=== PATIENT | female | born 1940 | race Caucasian/White ===

== ENCOUNTER 2016-06-26 14:25 | Emergency (ER) | payer OTHER ==
[~2016-06-26 14:25] MED LIST: ALBU1AER9 INH; ASPI325T39 PO; FORMCAP INH; LRS20 PO; MULT1TAB32 PO; RIVA1.5C6 PO
[2016-06-26 14:35] VITALS: TEMP 36.8
[2016-06-26] MEDS ORDERED: RIVA3CAP4 PO (15:24)
--- NOTE | 2016-06-26 15:29 | DIAGNOSTIC IMAGING REPORT ---
CT LUMBAR SPINE WITHOUT CT DOSE: 2027.48 mGycm CLINICAL HISTORY: Low back pain status post trauma TECHNIQUE: Helical images were acquired in transverse plane. Reformatted sagittal and coronal images were reviewed. CONTRAST: No contrast was administered COMPARISON STUDY: None. FINDINGS: L1-2 level: There is no evidence of significant disc bulge or focal herniation. There is no evidence of spinal or foraminal stenosis. There is an L2 vertebral body hemangioma L2-3 level: There is no evidence of significant disc bulge or focal herniation. There is no evidence of spinal or foraminal stenosis. L3-4 level: There is no evidence of significant disc bulge or focal herniation. There is no evidence of spinal or foraminal stenosis. L4-5 level: There is a minor circumferential disc bulge. There is no significant spinal or foraminal stenosis. L5-S1 level: There is facet joint arthropathy. There is a grade 1 spondylolisthesis of L5 5 and S1. No herniations are visualized. There is no spinal or foraminal stenosis. The bones are osteopenic. No acute fractures or traumatic subluxations are visualized IMPRESSION: 1. L2 vertebral body hemangioma 2. No acute fractures or traumatic subluxations identified Electronically signed by: Daniel Thomas M.D. 06/26/2016 3:27 PM Dictated Date/Time: 06/26/2016 3:24 PM
--- NOTE | 2016-06-26 15:40 | DIAGNOSTIC IMAGING REPORT ---
HEAD CT NONCONTRAST CT DOSE: 960.78 mGycm HISTORY: fall, hx bleed, hx cva TECHNIQUE: Multiaxial CT images of the head were performed without the use of intravenous contrast. Automated exposure control was utilized for this study. Comparison: Head CT 04/09/2016. Findings: The paranasal sinuses and mastoid air cells are clear. The calvarium and skull base are intact. White matter hypodensity is nonspecific but suggestive of microvascular ischemic change. The ventricles and sulci demonstrate mild age-related involutional changes. The right frontal lobe intracranial hemorrhage has essentially resolved in the interval. There is a residual 3.9 cm hypodense area remaining at this location. This likely represents normal post hemorrhage edema/changes. No acute hemorrhage identified. No acute infarct. There is a new 2.8 cm hypodense area within the high convexity the right frontal lobe best in image 22. This may demonstrate a slightly hyperdense rim. Impression: 1. No acute intracranial abnormality. 2. Interval resolution of right frontal lobe hemorrhage with residual edema/encephalomalacia remaining. 3. There is also a 2.8 cm hypodense focus within the right high convexity. This was not present on the prior study and appears to represent subacute to chronic hemorrhage. However, this may contain a thin hyperdense rim. Therefore, a mass could also have a similar appearance. Brain MRI with contrast is recommended for further evaluation. Gradient echo sequences should also be performed on the MRI to exclude amyloid angiopathy. Electronically signed by: Manjinder Helton M.D. 06/26/2016 3:38 PM Dictated Date/Time: 06/26/2016 3:27 PM
--- NOTE | 2016-06-26 16:43 | EMERGENCY ROOM VISIT NOTE ---
ED Visit Note First contact with patient: 14:41 Pt evaluated with PA. dementia, trip/fall at home. Family wanted pt screened for major problems after recent ICH Apr 2016. Pt at baseline. CT results noted. MRI scheduled in 1 week. Family in agreement with plan for outpt f/u. PA spoke with PCP regarding f/u and plan. Agree w/ management and plan.
--- NOTE | 2016-06-26 17:00 | DIAGNOSTIC IMAGING REPORT ---
RIGHT KNEE 3 VIEWS HISTORY: right knee pain, fall Right COMPARISON: None. FINDINGS: There is no fracture or dislocation. The bones are osteopenic. Chondrocalcinosis. Moderate cartilage space narrowing of the medial compartment with marginal osteophytes. Mild cartilage space narrowing within the lateral compartment. No significant knee effusion. Soft tissues are unremarkable. No radiopaque foreign bodies. IMPRESSION: No fractures. Mild to moderate right knee osteoarthritis. Chondrocalcinosis. Electronically signed by: Manjinder Helton M.D. 06/26/2016 4:58 PM Dictated Date/Time: 06/26/2016 4:57 PM
[2016-06-26] MEDS ORDERED: HYDR-5688 PO (17:22)
--- NOTE | 2016-06-26 17:23 | EMERGENCY ROOM VISIT NOTE ---
History First contact with patient: 14:41 Chief Complaint: FALL Stated Complaint: FALL History of Present Illness The patient is a 76 year old female who presents to the Emergency Room via BLS status post fall. The patient apparently tripped over the family dog and fell to the floor. The patient's family reports that the patient fell backwards onto her back and did hit her head on the floor. There was no loss of consciousness. The patient has been complaining of mid back pain. The report that the patient has a history of dementia and is currently at her baseline mental status. The patient had a bleed in the brain a few months ago. The patient rates her discomfort a 4/10. She denies any nausea, vomiting, abdominal pain or chest pain. Review of Systems A complete 10-point Review of Systems was discussed with the patient, with pertinent positives and negatives listed in the History of Present Illness. All remaining Review of Systems questions can be considered negative unless otherwise specified. Past Medical/Surgical History Medical Problems: (1) Alzheimer's dementia (2) Asthma (3) Dementia (4) Diabetes mellitus (5) History of - transient ischemic attack Family History Seizures Social History Smoking Status: Unknown if Ever Smoked Marital Status: Housing Status: lives with family Occupation Status: disabled Current/Historical Medications Scheduled Citalopram Hydrobromide (Citalopram Hydrobromide), 10 MG PO HS Fluticasone Prop/Salmeterol (Advair Diskus 250/50 60 Dose), 1 PUFF INH BID Levetiractam (Levetiracetam), 1,000 MG PO BID Levothyroxine Sodium (Levothyroxine Sodium), 50 MCG PO DAILY Rivastigmine Tartrate (Exelon), 3 MG PO BID Scheduled PRN Hydrocodone/Acetaminophen 5MG/325MG ([place] 5MG/325MG), 1 TABLET PO Q6H PRN for Pain Ipratropium-Albuterol (Duoneb), 1 TREATMENT INH QID PRN for SOB/Wheezing Allergies Coded Allergies: Sulfa Drugs (Unverified Allergy, Intermediate, headache, 08/31/14) Codeine (Unverified Allergy, Mild, vomiting, 08/31/14) Tramadol (Verified Adverse Reaction, Unknown, CAN NOT HAVE DUE TO RISK OF SEIZURES, 06/26/16) Physical Exam Vital Signs Date Time Temp Pulse Resp B/P Pulse Ox O2 Delivery O2 Flow Rate FiO2 06/26/16 17:27 72 18 128/78 98 06/26/16 16:16 61 18 142/71 96 Room Air 06/26/16 14:35 36.8 65 16 99/59 94 Room Air Physical Exam VITALS: Vitals are noted on the nurse's note and reviewed by myself. Vital signs stable. GENERAL: This is a 76-year-old female, in no acute distress, nondiaphoretic, well-developed well-nourished. SKIN: Capillary reflex less than 2 seconds. HEENT: Normocephalic. PERRLA. EOMI. Nares patent. Mucous membranes moist. Neck is supple without nuchal rigidity. HEART: Regular rate and rhythm without murmurs gallops or rubs. LUNGS: Clear to auscultation bilaterally without wheezes, rales or rhonchi. No retractions or accessory muscle use. ABDOMEN: Positive bowel sounds x 4. Soft, nontender to palpation. MUSCULOSKELETAL: There is tenderness to palpation of the mid lumbar spine. There is minimal tenderness over the right knee. No tenderness otherwise. NEURO: Patient was alert and oriented to person only. Medical Decision & Procedures ER Provider Diagnostic Interpretation: HEAD CT NONCONTRAST Impression: 1. No acute intracranial abnormality. 2. Interval resolution of right frontal lobe hemorrhage with residual edema/encephalomalacia remaining. 3. There is also a 2.8 cm hypodense focus within the right high convexity. This was not present on the prior study and appears to represent subacute to chronic hemorrhage. However, this may contain a thin hyperdense rim. Therefore, a mass could also have a similar appearance. Brain MRI with contrast is recommended for further evaluation. Gradient echo sequences should also be performed on the MRI to exclude amyloid angiopathy. CT LUMBAR SPINE WITHOUT IMPRESSION: 1. L2 vertebral body hemangioma 2. No acute fractures or traumatic subluxations identified RIGHT KNEE 3 VIEWS IMPRESSION: No fractures. Mild to moderate right knee osteoarthritis. Chondrocalcinosis. Medical Decision Differential diagnosis includes intracranial hemorrhage, concussion, fracture, contusion, dislocation, among others. The patient was evaluated as above. Labs were drawn and IV access was obtained. Imaging studies were performed and read by radiology as above. The patient declined any analgesics.. The patient was reassessed multiple times during their stay in the emergency department and remained in stable condition. The patient is a 76-year-old female who presents today complaining of a fall. Imaging studies were performed and read by radiology as above. The patient's head CT did show a chronic hemorrhage versus brain mass. MRI was suggested and follow-up. Dr. Cornell also evaluated the patient and did not feel that this needed to be done emergently. I did speak with the primary care provider to arrange outpatient follow-up. They will follow up with the patient in the office. The patient is already seeing neurology and does have an MRI scheduled of the brain later this month. Lumbar spine CT showed no fractures or subluxations. X-ray of the right knee was unremarkable. The patient was given a prescription for short course of pain medication. She will follow-up with her primary care provider or return for any new symptoms. Based on the patient's presentation, lab results, and imaging studies, I feel the patient is stable for outpatient treatment. Discharge instructions were reviewed with the patient. The patient verbalized understanding of my assessment and treatment plan and was discharged home in good condition. [place] Drug Monitoring Program Search Results: patient reviewed within database Impression Primary Impression: Fall Additional Impression: Contusion of multiple sites Departure Information Dispostion Home / Self-Care Condition GOOD Prescriptions Hydrocodone/Acetaminophen 5MG/325MG ([place] 5MG/325MG) Tab 1 TABLET PO Q6H Y for Pain, #10 TAB For Initial Treatment Prov: Saadia García ., INDY 06/26/16 Referrals Gayle Moreno M.D. (PCP) Patient Instructions My [facility] Additional Instructions You have been prescribed [place] to be used for pain control. Take 1-2 tablets every 4-6 hours as needed for pain. This is a narcotic medication. You cannot drive or consume alcohol while on this medicine. This medicine should only be used for pain that cannot be controlled with [id number] pain medicines. Follow-up with Dr. Moreno and for MRI as scheduled. Return to the emergency department with any worsening confusion, dizziness, or any other new/concerning symptoms. Problem Qualifiers
[2016-06-26 17:27] VITALS: BP 128/78; PULSE 72; O2SAT 98
[2017-01-20] MEDS ORDERED: LEVO50TA6 PO (13:56)
[2017-01-20] MEDS ORDERED: LEVE500T PO (13:56)
[2017-01-20] MEDS ORDERED: CITA10TA4 PO (14:00)
[2017-01-20] MEDS ORDERED: ADVIN25/60 INH (15:24)
[2017-01-20] MEDS ORDERED: IPRASOL4 INH (15:24)
[2017-01-23] MEDS ORDERED: AMOX875T PO (10:04)
== END 2016-06-26 17:28 | disposition home or self-care (01) ==
LOC: EDBD 14:25 → C.EDB 14:27
DX: T14.8 Other injury of unspecified body region (principal); W01.0XXA Fall on same level from slipping, tripping and stumbling without subsequent striking against object, initial encounter; D18.09 Hemangioma of other sites; R94.02 Abnormal brain scan; M17.11 Unilateral primary osteoarthritis, right knee; M11.261 Other chondrocalcinosis, right knee; G30.9 Alzheimer's disease, unspecified; F02.80 Dementia in other diseases classified elsewhere, unspecified severity, without behavioral disturbance, psychotic disturbance, mood disturbance, and anxiety; J45.909 Unspecified asthma, uncomplicated; E11.9 Type 2 diabetes mellitus without complications; Z86.73 Personal history of transient ischemic attack (TIA), and cerebral infarction without residual deficits; Z82.0 Family history of epilepsy and other diseases of the nervous system

== ENCOUNTER 2017-01-20 21:54 | Inpatient (IN) | payer OTHER ==
[~2017-01-20] VITALS: Ht 165.1 cm; Wt 79.0 kg
[~2017-01-20 21:54] MED LIST changes: +ADVIN25/60 INH; -ALBU1AER9 INH; -ASPI325T39 PO; +CITA10TA4 PO; -FORMCAP INH; +IPRASOL4 INH; +LEVE500T PO; +LEVO50TA6 PO; -LRS20 PO; -MULT1TAB32 PO; -RIVA1.5C6 PO; +RIVA3CAP4 PO
[2017-01-20] MEDS ORDERED: SODIUM CHLORIDE 0.9% 500ML 500 ML IV STA (22:13)
[2017-01-20] MEDS ORDERED: SODIUM CHLORIDE 0.9% 1000ML 1,000 ML IV STA (22:13)
[2017-01-20] MEDS ORDERED: SODIUM CHLORIDE 0.9% 1000ML 1,000 ML IV SCH (22:13)
[2017-01-20] MEDS ORDERED: VNTHFA/IN INH (22:37)
--- NOTE | 2017-01-20 22:45 | EMERGENCY ROOM VISIT NOTE ---
ED Visit Note First contact with patient: 22:03 I did evaluate and examine this patient myself. I did guide management for the patient. I agree with the APC's assessment as discussed. Please see the APC's dictation for further details. I did independently review the CT scan and blood work.
[2017-01-20] MEDS ORDERED: RIVA3CAP4 PO (22:58)
[2017-01-20 23:15] LABS: BASO % 0.1 %; BASO ABS # 0.02 K/uL (0-0.2); COMPLETE YES; EOS % 0.1 %; HEMATOCRIT 41.7 % (37-47); IG% 0.4 %; LYMPH ABS # 1.05 K/uL (1.2-3.4); MEAN CORPUSCULAR HEMOGLOBIN 30.3 pg (25-34); MEAN CORPUSCULAR HGB CONC 33.3 g/dl (32-36); MEAN PLATELET VOLUME 9.6 fL (7.4-10.4); MONO % 5.3 %; NEUT % 87.1 %; PLATELET COUNT 329 K/uL (130-400); RED BLOOD COUNT 4.58 M/uL (4.2-5.4); WHITE BLOOD COUNT 15.06 K/uL (4.8-10.8)
[2017-01-20 23:25] LABS: PARTIAL THROMBOPLASTIN RATIO 1.2; PROTHROMBIN TIME (PATIENT) 10.7 SECONDS (9.0-12.0)
[2017-01-20 23:35] LABS: BLOOD UREA NITROGEN 13 mg/dl (7-18); CALCIUM 8.8 mg/dl (8.5-10.1); CARBON DIOXIDE 22 mmol/L (21-32); CHLORIDE 105 mmol/L (98-107); GLUCOSE 134 mg/dl (70-99); MAGNESIUM 1.8 mg/dl (1.8-2.4); POTASSIUM 3.8 mmol/L (3.5-5.1); SODIUM 137 mmol/L (136-145)
[2017-01-20 23:37] LABS: URINE APPEARANCE CLEAR (CLEAR); URINE BILIRUBIN NEG (NEG); URINE COLOR YELLOW; URINE NITRITE NEG (NEG); URINE PH 7.5 (4.5-7.5); URINE SPECIFIC GRAVITY 1.014 (1.000-1.030); UROBILINOGEN NEG (NEG); ZZURINE CULT IF INDIC CATH NO
[2017-01-20 23:38] LABS: BUN/CREATININE RATIO 17.5 (10-20); CREATININE 0.74 mg/dl (0.60-1.20)
[2017-01-20 23:42] LABS: MANUAL MICROSCOPIC REQUIRED? NO; REVIEW REQ? NO
[2017-01-20 23:45] LABS: ALKALINE PHOSPHATASE 181 U/L (45-117); ALT/SGPT 21 U/L (12-78); AST/SGOT 14 U/L (15-37); CKMB/CK RATIO 3.4 (0-3.0)
[2017-01-20] MEDS ORDERED: OPTIRAY 320 IV PRN (23:45)
[2017-01-21] VITALS (8 sets, daily range): BP systolic 100–154; BP diastolic 57–82; PULSE 69–92; TEMP 36.5–37.1; O2SAT 92–98; Ht 165.1 cm; Wt 79.0 kg
[2017-01-21] MEDS ORDERED: LABETALOL HCL IV 5 MG/ML 20ML IV STA (00:49)
[2017-01-21] MEDS ORDERED: LEVAQUIN 750MG / 150ML D5W IV STA (01:15)
--- NOTE | 2017-01-21 01:22 | EMERGENCY ROOM VISIT NOTE ---
History First contact with patient: 22:03 Chief Complaint: ALTERED MENTAL STATUS Stated Complaint: LETHARGIC, CONFUSION, UNABLE TO AMBULATE Nursing Triage Summary: Starting at noon today Pt had difficulty ambulating. Balance is off. Pt lethargic today. Pt has hx of CVA and dementia. History of Present Illness The patient is a 76 year old female who presents to the Emergency Room with complaints of increasing confusion and difficulty ambulating since this morning. Patient has dementia and unable to obtain history. History is obtained from the grandson who lives in care for her. The grandson states that she normally does speak and is able to ablate with her walker. He states this morning she did not want take a shower or get up. Since then she's not been speaking or doing much of anything. He denies vomiting, diarrhea, patient complaining of chest pain, dyspnea or abdominal pain. He states that she's had a stroke before but is unsure if there is any deficits. He is unsure exactly when she was last known well but was this morning at some point which is greater than 12 hours from now. Review of Systems See HPI for pertinent positives & negatives. A total of 10 systems reviewed and were otherwise negative. Past Medical/Surgical History Medical Problems: (1) Alzheimer's dementia (2) Asthma (3) Dementia (4) Diabetes mellitus (5) History of - transient ischemic attack Family History Seizures Social History Smoking Status: Former Smoker Alcohol Use: none Drug Use: none Marital Status: Housing Status: lives with family Occupation Status: disabled Current/Historical Medications Scheduled Citalopram Hydrobromide (Citalopram Hydrobromide), 10 MG PO HS Fluticasone Prop/Salmeterol (Advair Diskus 250/50 60 Dose), 1 PUFF INH BID Levetiractam (Levetiracetam), 1,000 MG PO BID Levothyroxine Sodium (Levothyroxine Sodium), 50 MCG PO DAILY Rivastigmine Tartrate (Exelon), 3 MG PO BID Scheduled PRN Ipratropium-Albuterol (Duoneb), 1 TREATMENT INH QID PRN for SOB/Wheezing Allergies Coded Allergies: Sulfa Drugs (Unverified Allergy, Intermediate, headache, 08/31/14) Codeine (Unverified Allergy, Mild, vomiting, 08/31/14) Tramadol (Verified Adverse Reaction, Unknown, CAN NOT HAVE DUE TO RISK OF SEIZURES, 06/26/16) Physical Exam Vital Signs Date Time Temp Pulse Resp B/P (MAP) Pulse Ox O2 Delivery O2 Flow Rate FiO2 01/21/17 00:23 37.3 113 33 216/122 93 Room Air 01/20/17 23:23 36.4 106 32 174/112 96 Room Air 01/20/17 23:22 36.4 01/20/17 22:47 Room Air 01/20/17 22:05 105 01/20/17 22:01 37.5 105 30 197/125 94 Room Air Physical Exam VITALS: Vitals are noted on the nurse's note and reviewed by myself. Vital signs hypertensive GENERAL: Pleasant elderly female able to follow some commands but does not know where she is at, in no acute distress SKIN: The skin was without rashes, erythema, edema, or bruising. There is no tenting of the skin. Capillary reflex less than 2 seconds. HEAD: Normocephalic atraumatic. EARS: External auditory canals clear, tympanic membranes pearly castrejon without erythema or effusion bilaterally. EYES: Pupils equal round and reactive to light and accommodation. Conjunctivae without injection, sclerae without icterus. Extraocular movements intact. NOSE: Patent, turbinates without inflammation or discharge. No sinus tenderness. MOUTH: Mucous membranes mildly dry. Pharynx without erythema or exudate. Uvula midline. Airway patent. Tongue does not deviate. NECK: Supple without nuchal rigidity. No lymphadenopathy. No thyromegaly. Cervical spine is nontender. No JVD. HEART: Regular rate and rhythm LUNGS: Clear to auscultation bilaterally without wheezes, rales or rhonchi. No dullness to percussion. No retractions or accessory muscle use. ABDOMEN: Positive bowel sounds x 4. Normal tympanic percussion. Soft, tender to palpation lower abdomen, no CVA tenderness, without masses or organomegaly. [place] sign negative. No guarding or rebound tenderness. MUSCULOSKELETAL: No muscle atrophy, erythema, or edema noted. Left pronator drift with increased weakness in the left arm versus the right. Equal Bilateral lower leg weakness. NEURO: Patient was alert but not oriented to person place and time. Medical Decision & Procedures Laboratory Results 01/20/17 22:43 Red Blood Count 4.58, Mean Corpuscular Volume 91.0, Mean Corpuscular Hemoglobin 30.3, Mean Corpuscular Hemoglobin Concent 33.3, Mean Platelet Volume 9.6, Neutrophils (%) (Auto) 87.1, Lymphocytes (%) (Auto) 7.0, Monocytes (%) (Auto) 5.3, Eosinophils (%) (Auto) 0.1, Basophils (%) (Auto) 0.1, Neutrophils # (Auto) 13.12, Lymphocytes # (Auto) 1.05, Monocytes # (Auto) 0.80, Eosinophils # (Auto) 0.01, Basophils # (Auto) 0.02 01/20/17 22:43 Test 01/20/17 22:43 01/20/17 23:01 01/20/17 23:20 01/21/17 00:49 White Blood Count 15.06 K/uL (4.8-10.8) Red Blood Count 4.58 M/uL (4.2-5.4) Hemoglobin 13.9 g/dL (12.0-16.0) Hematocrit 41.7 % (37-47) Mean Corpuscular Volume 91.0 fL (80-100) Mean Corpuscular Hemoglobin 30.3 pg (25-34) Mean Corpuscular Hemoglobin Concent 33.3 g/dl (32-36) Platelet Count 329 K/uL (130-400) Mean Platelet Volume 9.6 fL (7.4-10.4) Neutrophils (%) (Auto) 87.1 % Lymphocytes (%) (Auto) 7.0 % Monocytes (%) (Auto) 5.3 % Eosinophils (%) (Auto) 0.1 % Basophils (%) (Auto) 0.1 % Neutrophils # (Auto) 13.12 K/uL (1.4-6.5) Lymphocytes # (Auto) 1.05 K/uL (1.2-3.4) Monocytes # (Auto) 0.80 K/uL (0.11-0.59) Eosinophils # (Auto) 0.01 K/uL (0-0.5) Basophils # (Auto) 0.02 K/uL (0-0.2) RDW Standard Deviation 44.5 fL (36.4-46.3) RDW Coefficient of Variation 13.4 % (11.5-14.5) Immature Granulocyte % (Auto) 0.4 % Immature Granulocyte # (Auto) 0.06 K/uL (0.00-0.02) Prothrombin Time 10.7 SECONDS (9.0-12.0) Prothromb Time International Ratio 1.0 (0.9-1.1) Activated Partial Thromboplast Time 30.3 SECONDS (21.0-31.0) Partial Thromboplastin Ratio 1.2 Anion Gap 10.0 mmol/L (3-11) Est Creatinine Clear Calc Drug Dose 70.1 ml/min Estimated GFR () 92.5 Estimated GFR (Non- 79.8 BUN/Creatinine Ratio 17.5 (10-20) Calcium Level 8.8 mg/dl (8.5-10.1) Magnesium Level 1.8 mg/dl (1.8-2.4) Total Bilirubin 0.5 mg/dl (0.2-1) Direct Bilirubin < 0.1 mg/dl (0-0.2) Aspartate Amino Transf (AST/SGOT) 14 U/L (15-37) Alanine Aminotransferase (ALT/SGPT) 21 U/L (12-78) Alkaline Phosphatase 181 U/L (45-117) Total Creatine Kinase 100 U/L (26-192) Creatine Kinase MB 3.4 ng/ml (0.5-3.6) Creatine Kinase MB Ratio 3.4 (0-3.0) Troponin I < 0.015 ng/ml (0-0.045) Total Protein 7.2 gm/dl (6.4-8.2) Albumin 3.5 gm/dl (3.4-5.0) Bedside Glucose 142 mg/dl (70-90) Bedside Lactic Acid Venous 0.92 mmol/L (0.90-1.70) Urine Color YELLOW Urine Appearance CLEAR (CLEAR) Urine pH 7.5 (4.5-7.5) Urine Specific [place] 1.014 (1.000-1.030) Urine Protein NEG (NEG) Urine Glucose (UA) NEG (NEG) Urine Ketones NEG (NEG) Urine Occult Blood NEG (NEG) Urine Nitrite NEG (NEG) Urine Bilirubin NEG (NEG) Urine Urobilinogen NEG (NEG) Urine Leukocyte Esterase NEG (NEG) Medications Administered Medications (Trade) Dose Ordered Sig/Dora Route Start Time Stop Time Status Last Admin Dose Admin Sodium Chloride 1,000 ml @ 50 mls/hr Q20H IV 01/20/17 22:13 02/19/17 22:12 01/20/17 23:26 50 MLS/HR Sodium Chloride 500 ml @ 999 mls/hr Q31M STAT IV 01/20/17 22:13 01/20/17 22:43 DC 01/20/17 22:58 999 MLS/HR Sodium Chloride 1,000 ml @ 125 mls/hr Q8H STAT IV 01/20/17 22:13 01/21/17 06:12 01/20/17 23:27 125 MLS/HR Labetalol HCl (Normodyne IV) 10 mg NOW STAT IV 01/21/17 00:49 01/21/17 00:51 DC 01/21/17 01:00 10 MG ED Course Prior records/ancillary studies reviewed and summarized above. Nursing notes reviewed. Additional history obtained from family The patient's history was concerning for altered mental status. Differential diagnosis: Etiologies such as metabolic, infection, hypoglycemia, electrolyte abnormalities , cardiac sources, intracerebral event, toxicologic, neurologic, as well as others were entertained. Physical examination: As above. ER treatment provided: IV Lock Normal saline hydration at 500 mL bolus and 125 an hour. On reassessment the patients mental status improved. Diagnostics interpretation by me: ECG: Normal sinus, normal intervals, left axis deviation, Q waves in the anteroseptal leads, poor baseline, rate of 104. Impression sinus tachycardia with a left axis deviation with Q waves in the anteroseptal leads interpreted The labs revealed leukocytosis, negative lactic acid. Negative urine. Negative troponin Imaging studies: CTA HEAD: No central occlusion related to the [place] of [place]. CTA NECK: No occlusion or critical stenosis in the carotid or vertebral arteries. 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 Too small to characterize low attenuation focus in right lobe of the thyroid gland. CT ABDOMEN & PELVIS: No evidence of appendicitis or colitis. Morgan catheter. Patchy consolidation/atelectasis in right mid - lower lung field. Radiologist: Teresa Buckner M.D. Chest x-ray with possible RLL consolidation, no pneumothorax or free air per my interpretation Given the above diagnostic work-up and treatment, this episode appears to be consistent with pneumonia with altered mental status. CTA was negative. Patient did have a leukocytosis. Negative lactic acid. She was confused. She is started on antibiotics hydrated as above. She will be evaluated by medicine for possible admission. Blood cultures are pending. Further treatment will be required. Consultation: A consultation was placed with Dr. Donta perla. The case was discussed and diagnostics were reviewed. The patient was evaluated in the ER for further treatment. Case reviewed with my attending. Medical Decision As above Impression Primary Impression: Pneumonia Additional Impression: Altered mental status Departure Information Dispostion Being Evaluated By Hospitalist Condition FAIR Referrals Gayle Moreno M.D. (PCP) Patient Instructions My [facility] Problem Qualifiers Primary Impression: Pneumonia Pneumonia type: due to unspecified organism Laterality: right Lung location : lower lobe of lung Qualified Codes: J18.1 - Lobar pneumonia, unspecified organism Additional Impression: Altered mental status Altered mental status type: disorientation Qualified Codes: R41.0 - Disorientation, unspecified
[2017-01-21] MEDS ORDERED: OXYCODONE/ACETAMINOPHEN 5-325 TAB PO PRN (02:45)
[2017-01-21] MEDS ORDERED: ONDANSETRON INJ 2 MG/ML 2 ML VIAL IV PRN (02:45)
[2017-01-21] MEDS ORDERED: HYDROmorphone INJ 0.5 MG/0.5 ML SYR IV PRN (02:45)
[2017-01-21] MEDS ORDERED: NITROGLYCERIN 0.4 MG SL PER TAB CHARGE SL PRN (02:45)
[2017-01-21] MEDS ORDERED: PIPERACILLIN/TAZOBACTAM 4.5 GM/100ML D5W IV STA (02:53)
[2017-01-21] MEDS ORDERED: NSS + 20MEQ KCL 1000ML 1,000 ML IV ONE (03:00)
[2017-01-21] MEDS ORDERED: LEVALBUTEROL/IPRATROPIUM NEB INH PRN (03:45)
[2017-01-21 03:57] LABS: BUN/CREATININE RATIO 11.3 (10-20); CALCIUM 8.5 mg/dl (8.5-10.1); CREATININE 0.85 mg/dl (0.60-1.20); POTASSIUM 3.9 mmol/L (3.5-5.1)
[2017-01-21] MEDS ORDERED: METRONIDAZOLE / NSS 500 MG in PREMIXED NSS 100 ML IV SCH (04:00)
[2017-01-21] MEDS ORDERED: PNEUMOCOCCAL POLYSACCHARIDES 25 MCG/0.5 ML VIAL/SYR IM. ONE (05:00)
[2017-01-21] MEDS ORDERED: PNEUMOCOCCAL ADMINISTRATION CHARGE ONE (05:00)
[2017-01-21] MEDS ORDERED: IPRATROPIUM BROMIDE NEB SOLN 0.02% 2.5 ML VIAL INH PRN (05:00)
[2017-01-21] MEDS ORDERED: LEVALBUTEROL 1.25MG/0.5ML NEB INH PRN (05:00)
[2017-01-21] MEDS: LEVOTHYROXINE 50 MCG TAB PO SCH ×2 (05:18→07:36)
--- NOTE | 2017-01-21 06:32 | DIAGNOSTIC IMAGING REPORT ---
CT HEAD WITHOUT CONTRAST (CT) CLINICAL HISTORY: Acute change in mental status. Left-sided weakness. History of stroke. COMPARISON STUDY: 06/26/2016 TECHNIQUE: Axial CT of the brain is performed from the vertex to the skull base. IV contrast was not administered for this examination. A dose lowering technique was utilized adhering to the principles of ALARA. CT DOSE: 614.27 mGy.cm FINDINGS: No intra or extra-axial mass lesions are visualized. There is no CT evidence of acute cortical infarction. There is no evidence of midline shift. There is no acute hemorrhage. No calvarial fractures are visualized. There are moderate white matter hypodensities likely on a small vessel basis. There is an old right frontal infarct. There is no evidence of pathologic ventricular dilatation. There is no evidence of acute sinusitis. There is increased density within a right middle cerebral artery segment. While this may be artifactual, an acute thrombus cannot be excluded. IMPRESSION: 1. Old right frontal infarct 2. Moderate white matter hypodensities likely on a small vessel basis 3. No acute hemorrhage 4. Increased density within the right middle cervical artery segment. While this may be artifactual, an acute thrombus cannot be excluded. Electronically signed by: Daniel Thomas M.D. 01/21/2017 6:31 AM Dictated Date/Time: 01/21/2017 6:28 AM
--- NOTE | 2017-01-21 06:43 | DIAGNOSTIC IMAGING REPORT ---
CT HEAD ANGIO WITH CONTRAST CLINICAL HISTORY: Confusion, lethargy, left pronator drift. Possible hyperdense right MCA sign TECHNIQUE: CT angiography of the head was performed in a dynamic helical fashion during intravenous administration of 116 cc of Optiray 320. A dose lowering technique was utilized adhering to the principles of ALARA. MIP imaging was performed CT DOSE: COMPARISON STUDY: Noncontrast head CT dated 01/20/2017 FINDINGS: There are no lesion suspicious for aneurysm. There are no major intracranial branch occlusions. The dural venous sinuses appear patent. There is a prominent transcortical draining vein within the left frontal lobe suggesting an underlying developmental venous anomaly. IMPRESSION: 1. No evidence of aneurysm 2. No evidence of major intracranial branch occlusion 3. Left frontal developmental venous anomaly 4. No evidence of right middle cerebral artery thrombus Electronically signed by: Daniel Thomas M.D. 01/21/2017 6:41 AM Dictated Date/Time: 01/21/2017 6:37 AM
--- NOTE | 2017-01-21 07:07 | DIAGNOSTIC IMAGING REPORT ---
SINGLE VIEW CHEST CLINICAL HISTORY: Change in mental status. FINDINGS: An AP, portable, upright chest radiograph is compared to study dated 04/09/2016. The examination is degraded by portable technique and patient rotation. The heart is top normal for projection. There is atherosclerotic calcification of the thoracic aorta. Chronic interstitial thickening and nodularity is similar to previous. There is no evidence of superimposed airspace consolidation or pleural effusion. Atelectasis is noted at the lung bases. No pneumothorax is seen. The skeletal structures are osteopenic. The bony thorax is grossly intact. IMPRESSION: No acute cardiopulmonary abnormality. Electronically signed by: Roberto Clark M.D. 01/21/2017 7:05 AM Dictated Date/Time: 01/21/2017 7:04 AM
--- NOTE | 2017-01-21 07:13 | DIAGNOSTIC IMAGING REPORT ---
NECK ANGIO WITH CONTRAST CLINICAL HISTORY: 76 years-old Female presenting with confusion, lethargic, left pronator drift, unable to ambulate, diffuse abdominal pain. TECHNIQUE: Multidetector CT angiography of the neck was performed after the administration of intravenous contrast. 3-D volumetric and/or maximum intensity projection (MIP) images were subsequently reconstructed for review. IV contrast: 116 mL of Optiray 320. A dose lowering technique was used consistent with the principles of ALARA (as low as reasonably achievable). COMPARISON: Noncontrast CT of the cervical spine from 08/31/2014. CT DOSE (mGy.cm): The estimated cumulative dose is 1303.32 mGy.cm. FINDINGS: [employer] topogram: Unremarkable. Atherosclerosis of the aortic arch. Three-vessel arch configuration. Atherosclerosis of the origins of the major branch vessels. Mild atherosclerosis of the common carotid arteries with noncalcified atherosclerotic plaque resulting in a minimum diameter of the left common carotid artery of 4 to 5 mm. Minimal atherosclerosis of the proximal internal carotid arteries, which is not significantly narrow the lumen (less than 10%). The bilateral internal carotid arteries remain patent throughout their courses without evidence of significant narrowing, aneurysmal dilatation, or dissection. Atherosclerosis of the cavernous portions of the intracranial ICAs. Codominant vertebral arteries with patent origins and courses. Limited intracranial evaluation demonstrates grossly patent intracranial vasculature and hypodensity in the right middle cerebral artery territory distribution, consistent with old infarct as noted on prior CT head. No lymphadenopathy. Subcentimeter hypodense nodule noted in the right thyroid lobe. Lung apices clear. Multilevel degenerative changes of the cervical spine. IMPRESSION: 1. Atherosclerosis without evidence of significant stenosis, dissection, or occlusion of the cervical vessels. 2. Partially visualized right MCA territory chronic infarct. Electronically signed by: Johnny Power M.D. 01/21/2017 7:12 AM Dictated Date/Time: 01/21/2017 7:04 AM
[2017-01-21 07:17] LABS: MEAN CELL VOLUME 90.5 fL (80-100); MEAN CORPUSCULAR HEMOGLOBIN 31.4 pg (25-34); MEAN CORPUSCULAR HGB CONC 34.7 g/dl (32-36); MEAN PLATELET VOLUME 9.4 fL (7.4-10.4); PLATELET COUNT 252 K/uL (130-400); WHITE BLOOD COUNT 17.21 K/uL (4.8-10.8)
--- NOTE | 2017-01-21 07:19 | DIAGNOSTIC IMAGING REPORT ---
CT SCAN OF THE ABDOMEN AND PELVIS WITH IV CONTRAST CLINICAL HISTORY: Generalized abdominal pain. Change in mental status. COMPARISON STUDY: No priors. TECHNIQUE: Following the IV administration of 116 cc of Optiray 320, CT scan of the abdomen and pelvis is performed from the lung bases to the proximal femora. Images are reviewed in the axial, sagittal, and coronal planes. IV contrast was administered without complication. Automated dose control exposure was utilized. A dose lowering technique was utilized adhering to the principles of ALARA. The examination is degraded by streak artifact from the patient's arms which could not be elevated above the abdomen as well as by motion artifact. The examination was obtained an excretory phase of enhancement. FINDINGS: Lung bases: The heart is normal in size and without pericardial effusion. The coronary arteries and mitral annulus are calcified. There are subpleural opacities in the right middle lobe. The lung bases are otherwise clear. No pleural effusion is seen. Liver: The contrast-enhanced liver is normal in size, contour, and attenuation. There is no intrahepatic biliary ductal dilatation. The hepatic veins and portal veins are patent. Gallbladder: Adnexa pneumatosis is seen within the gallbladder wall fundus. The gallbladder is otherwise normal in appearance. Spleen: Normal in size and attenuation. Pancreas: Moderately atrophic and grossly unremarkable. Adrenal glands: Unremarkable. Kidneys: The contrast enhanced kidneys demonstrate cortical atrophy and are without hydronephrosis. The kidneys enhance and excrete symmetrically. Abdominal vasculature: The abdominal aorta is normal in course and caliber noting advanced atherosclerotic calcification. Bowel: The small bowel and colon are normal in course and caliber. The appendix is well-visualized and normal. Peritoneum: There is no intraperitoneal free air or abdominal ascites. There is a small fat-containing umbilical hernia. Lymphadenopathy: None. Pelvic viscera: The bladder is decompressed around a Morgan catheter. Small foci of intraluminal gas are likely related to instrumentation. The uterus is surgically absent. No adnexal lesion is seen. Findings suggest pelvic floor prolapse. Skeletal structures: The skeletal structures are osteopenic. There is moderate lumbosacral spondylosis. A large hemangioma is noted in the body of L2. No lytic or blastic lesions are seen. IMPRESSION: 1. There are no acute infectious or inflammatory findings in the abdomen or pelvis. 2. There are subpleural opacities identified in the right middle lobe. This is nonspecific and could represent atelectasis versus an infectious/inflammatory pneumonitis. Given the subpleural location pulmonary infarct is also a consideration. If there is clinical concern for pulmonary infarct then a CT angiogram of the chest should be considered. 3. The bladder is decompressed around a Morgan catheter. Foci of intraluminal gas are likely related to instrumentation. Correlation with clinical findings and urinalysis will be required. 4. Additional findings as above. Electronically signed by: Roberto Clark M.D. 01/21/2017 7:17 AM Dictated Date/Time: 01/21/2017 7:02 AM
[2017-01-21] MEDS: FLUTICASONE/SALMETEROL 250/50 (ADVAIR) 14 PUFF/1 INHALER INH SCH ×2 (07:31→20:35)
[2017-01-21] MEDS: RIVASTIGMINE TARTRATE (EXELON) 1.5 MG CAP PO SCH ×2 (07:31→20:38)
[2017-01-21] MEDS: LEVETIRACETAM 500 MG TAB PO SCH ×2 (07:32→20:38)
[2017-01-21] MEDS: PIPERACILL/TAZOBAC IV 3.375 GM in DEXTROSE 5% 100ML IV SCH ×2 (07:37→16:17)
[2017-01-21 07:47] LABS: BASO % 0.1 %; BASO ABS # 0.01 K/uL (0-0.2); COMPLETE YES; EOS % 0.1 %; IG% 0.4 %; LYMPH % 9.4 %; LYMPH ABS # 1.62 K/uL (1.2-3.4); MONO % 4.9 %; NEUT % 85.1 %
[2017-01-21] MEDS ORDERED: PIPERACILL/TAZOBAC CONSULT ACTIVE PRN (09:00)
--- NOTE | 2017-01-21 09:04 | HISTORY & PHYSICAL EXAMINATION ---
DATE OF ADMISSION: 01/21/2017 PRIMARY CARE DOCTOR: Dr. Edwards. CHIEF COMPLAINT: Altered mental status as per records. HISTORY OF PRESENT ILLNESS: History obtained from the patient's grandson and records. Unable to obtain history secondary to the patient's dementia. Medical history significant for dementia, hypertension, hx ischemic CVA as per records, history of subarachnoid hemorrhage, epilepsy, COPD, ongoing tobacco abuse, history of esophageal dysfunction as per records. Recent confinement at [facility] in 04/2016 for traumatic subarachnoid hemorrhage. Angiogram was negative for aneurysm or dissection. Patient was intubated in the ICU, subsequently extubated. Subsequently discharged to rehabilitation then home. Yesterday, the patient noted to be more confused than usual, increasingly weak. Loose stools noted as well as per records. No chest pain, no shortness of breath, no unusual cough symptoms as per grandson. As per grandson, the patient noted to be coughing if she is not careful with meals and coffee. Patient brought to the Emergency Room, given Levaquin for possible pneumonia. MEDICAL HISTORY: As above. SURGERIES: Thyroidectomy, hysterectomy, urethral reconstruction. HOME MEDICATIONS: Include citalopram, Advair Diskus, DuoNeb, levothyroxine, Exelon. ALLERGIES: TO CODEINE, TRAMADOL, SULFA. FAMILY HISTORY: Liver disease; breast, lung, kidney cancer; skin cancer; stroke. PERSONAL AND SOCIAL HISTORY: Past tobacco abuse. No chronic intake of alcoholic beverages. Lives with grandson. REVIEW OF SYSTEMS: Could not be obtained. PHYSICAL EXAMINATION: VITAL SIGNS: Blood pressure noted to be initially 216/132, later 160/80; pulse rate 113, later 92; RR 20; 36.6; sats 95 on room air. GENERAL: Noted to be demented, follows some commands, hard of hearing. SKIN: Normal color. HEENT: [place] palpebral conjunctivae, dry mucosa. NECK: No JVD. Supple CHEST: Decreased breath sounds. HEART: Regular rate and rhythm. ABDOMEN: Soft. EXTREMITIES: No edema, no tenderness. NEUROLOGIC: Demented, hard of hearing. LABORATORY DATA: Hemoglobin was noted to be 13.9, hematocrit 41.7, white blood cell count 15, platelets 339. Sodium 136, potassium 3.8, chloride 105, CO2 of 22, BUN 30, creatinine 0.7, glucose 134. IMAGING DATA: CT head initial read showed old right frontal infarct, no acute hemorrhage. CT head angio showed no evidence of aneurysm, left frontal developmental venous anomaly. CT abdomen and pelvis, no evidence of hepatitis, Morgan catheter, patchy consolidation, atelectasis right mid lung. ASSESSMENT: 1. Encephalopathy secondary to sepsis Possible sources : aspiration pneumonia, history of esophageal dysfunction Diarrhea rule out C. difficile 2. Dementia. 3. Seizure disorder, stable. 4. History of intracranial hemorrhage. 5. History of ischemic cerebrovascular accident. 6. COPD, past tobacco abuse. Although with episodes of tachypnea, patient currently not in respiratory distress. 7. Hyperglycemia, rule out diabetes. PLAN: PCU. Cultures. Aspiration precautions. Zosyn. Swallow eval consult RE patient caregiver indication regarding aspiration precautions Stool C. difficile, Flagyl for now for presumptive C. difficile in light of sepsis criteria, DC Flagyl if C. difficile negative PT/OT eval. Check hemoglobin A1c. DVT prophylaxis, SCDs, RE recent SAH Full code as per grandson/caregiver, Jenaro. Awaiting call back from patient's daughter, Cely Valero ([phone]) to address code status. [facility]
[2017-01-21 09:31] LABS: ESTIMATED AVERAGE GLUCOSE 117 mg/dl; HA1C FLAG Normal (Normal)
--- NOTE | 2017-01-21 11:38 | Progress Note ---
Subjective Date of Service: Jan 21, 2017. Subjective Pt evaluation today including: conversation w/ patient, physical exam, lab review, review of studies, review of inpatient medication list Saw/examined the patient in room 217 She is doing better today; grandson is at bedside, states he lives with her at home and cares for her. He tells me that she seems to be closer to baseline today; she is now ambulating well; she is smiling and more aware. Patient is seated in a chair in no acute distress Problem List Medical Problems: (1) Altered mental status Status: Acute (2) Altered mental status Status: Acute (3) Intracranial hemorrhage Status: Acute (4) Pneumonia Status: Acute (5) Subarachnoid hemorrhage Status: Acute (6) Subdural hemorrhage Status: Acute Review of Systems cannot obtain due to patient's mental status Medications Current Inpatient Medications Medications (Trade) Dose Ordered Sig/Dora Route Start Time Stop Time Status Last Admin Dose Admin Ioversol (Optiray 320) 100 ml UD PRN IV 01/20/17 23:45 01/24/17 23:44 Potassium Chloride/Sodium Chloride 1,000 ml @ 75 mls/hr [id number] ONCE IV 01/21/17 03:00 01/21/17 16:19 01/21/17 04:01 75 MLS/HR Acetaminophen (Tylenol Tab) 650 mg Q4H PRN PO 01/21/17 02:45 02/20/17 02:44 Nitroglycerin (Nitrostat Tab) 0.4 mg UD PRN SL 01/21/17 02:45 02/20/17 02:44 Hydromorphone HCl (Dilaudid Inj) 0.5 mg Q3H PRN IV 01/21/17 02:45 02/04/17 02:44 Oxycodone/ Acetaminophen (Percocet 5-325mg Tab) 1 tab Q6H PRN PO 01/21/17 02:45 02/04/17 02:44 Ondansetron HCl (Zofran Inj) 4 mg Q6H PRN IV 01/21/17 02:45 02/20/17 02:44 01/21/17 05:35 4 MG Metronidazole 500 mg/Prmx 100 ml @ 100 mls/hr Q8H IV 01/21/17 04:00 01/31/17 03:59 01/21/17 04:00 100 MLS/HR Piperacillin Sod/ Tazobactam Sod (Consult) 1 ea UD PRN N/A 01/21/17 09:00 02/20/17 08:59 Salmeterol Xinafoate/ Fluticasone (Advair Diskus 250/50 Inh) 1 puff BID INH 01/21/17 09:00 02/20/17 08:59 01/21/17 07:31 1 PUFF Levetiracetam (Keppra Tab) 1,000 mg BID PO 01/21/17 09:00 02/20/17 08:59 01/21/17 07:32 1,000 MG Levothyroxine Sodium (Synthroid Tab) 50 mcg DAILYBB PO 01/21/17 06:00 02/20/17 05:59 01/21/17 07:36 50 MCG Citalopram Hydrobromide (celeXA TAB) 10 mg HS PO 01/21/17 21:00 02/20/17 20:59 Rivastigmine Tartrate (Exelon Cap) 3 mg BID PO 01/21/17 09:00 02/20/17 08:59 01/21/17 07:31 3 MG Piperacillin Sod/ Tazobactam Sod 3.375 gm/Dextrose 115 ml @ 28.75 mls/ hr Q8H IV 01/21/17 08:00 01/28/17 07:59 01/21/17 07:37 28.75 MLS/HR Ipratropium Mina (Atrovent 0.02% 0.5MG/2.5ML Neb) 0.5 mg Q4H PRN INH 01/21/17 05:00 02/20/17 04:59 Levalbuterol (Xopenex 1.25MG/ 0.5ML Neb) 1.25 mg Q4H PRN INH 01/21/17 05:00 02/20/17 04:59 Objective Vital Signs Date Time Temp Pulse Resp B/P (MAP) Pulse Ox O2 Delivery O2 Flow Rate FiO2 01/21/17 08:00 Room Air 01/21/17 07:00 37.0 69 18 122/76 (91) 94 Room Air 01/21/17 04:00 95 Room Air 01/21/17 03:58 37.1 80 22 130/82 (98) 95 Room Air 01/21/17 02:29 36.6 92 20 136/80 95 Room Air 01/21/17 01:52 98 01/21/17 01:45 91 94 01/21/17 01:34 126/92 01/21/17 01:30 88 93 01/21/17 01:15 93 93 01/21/17 01:00 104 173/115 93 01/21/17 00:23 37.3 113 33 216/122 93 Room Air 01/20/17 23:23 36.4 106 32 174/112 96 Room Air 01/20/17 23:22 36.4 01/20/17 22:47 Room Air 01/20/17 22:05 105 01/20/17 22:01 37.5 105 30 197/125 94 Room Air Physical Exam General Appearance: no apparent distress Respiratory/Chest: lungs clear, normal breath sounds, no respiratory distress, no accessory muscle use Cardiovascular: regular rate, rhythm, no edema, no murmur Abdomen: normal bowel sounds, non tender, soft Neurologic/Psychiatric: alert, + pertinent finding (pleasantly demented) Laboratory Results Last 24 Hours Test 01/20/17 22:43 01/20/17 23:01 01/20/17 23:20 01/21/17 03:01 White Blood Count 15.06 K/uL Red Blood Count 4.58 M/uL Hemoglobin 13.9 g/dL Hematocrit 41.7 % Mean Corpuscular Volume 91.0 fL Mean Corpuscular Hemoglobin 30.3 pg Mean Corpuscular Hemoglobin Concent 33.3 g/dl Platelet Count 329 K/uL Mean Platelet Volume 9.6 fL Neutrophils (%) (Auto) 87.1 % Lymphocytes (%) (Auto) 7.0 % Monocytes (%) (Auto) 5.3 % Eosinophils (%) (Auto) 0.1 % Basophils (%) (Auto) 0.1 % Neutrophils # (Auto) 13.12 K/uL Lymphocytes # (Auto) 1.05 K/uL Monocytes # (Auto) 0.80 K/uL Eosinophils # (Auto) 0.01 K/uL Basophils # (Auto) 0.02 K/uL RDW Standard Deviation 44.5 fL RDW Coefficient of Variation 13.4 % Immature Granulocyte % (Auto) 0.4 % Immature Granulocyte # (Auto) 0.06 K/uL Prothrombin Time 10.7 SECONDS Prothromb Time International Ratio 1.0 Activated Partial Thromboplast Time 30.3 SECONDS Partial Thromboplastin Ratio 1.2 Sodium Level 137 mmol/L 136 mmol/L Potassium Level 3.8 mmol/L 3.9 mmol/L Chloride Level 105 mmol/L 106 mmol/L Carbon Dioxide Level 22 mmol/L 21 mmol/L Anion Gap 10.0 mmol/L 9.0 mmol/L Blood Urea Nitrogen 13 mg/dl 10 mg/dl Creatinine 0.74 mg/dl 0.85 mg/dl Est Creatinine Clear Calc Drug Dose 70.1 ml/min 60.3 ml/min Estimated GFR () 92.5 78.2 Estimated GFR (Non- 79.8 67.5 BUN/Creatinine Ratio 17.5 11.3 Random Glucose 134 mg/dl 166 mg/dl Calcium Level 8.8 mg/dl 8.5 mg/dl Magnesium Level 1.8 mg/dl Total Bilirubin 0.5 mg/dl Direct Bilirubin < 0.1 mg/dl Aspartate Amino Transf (AST/SGOT) 14 U/L Alanine Aminotransferase (ALT/SGPT) 21 U/L Alkaline Phosphatase 181 U/L Total Creatine Kinase 100 U/L Creatine Kinase MB 3.4 ng/ml Creatine Kinase MB Ratio 3.4 Troponin I < 0.015 ng/ml Total Protein 7.2 gm/dl Albumin 3.5 gm/dl Thyroid Stimulating Hormone (TSH) 1.040 uIu/ml Bedside Glucose 142 mg/dl Bedside Lactic Acid Venous 0.92 mmol/L Urine Color YELLOW Urine Appearance CLEAR Urine pH 7.5 Urine Specific [place] 1.014 Urine Protein NEG Urine Glucose (UA) NEG Urine Ketones NEG Urine Occult Blood NEG Urine Nitrite NEG Urine Bilirubin NEG Urine Urobilinogen NEG Urine Leukocyte Esterase NEG Test 01/21/17 06:43 01/21/17 06:51 Estimated Average Glucose 117 mg/dl Hemoglobin A1c 5.7 % White Blood Count 17.21 K/uL Red Blood Count 4.20 M/uL Hemoglobin 13.2 g/dL Hematocrit 38.0 % Mean Corpuscular Volume 90.5 fL Mean Corpuscular Hemoglobin 31.4 pg Mean Corpuscular Hemoglobin Concent 34.7 g/dl Platelet Count 252 K/uL Mean Platelet Volume 9.4 fL Neutrophils (%) (Auto) 85.1 % Lymphocytes (%) (Auto) 9.4 % Monocytes (%) (Auto) 4.9 % Eosinophils (%) (Auto) 0.1 % Basophils (%) (Auto) 0.1 % Neutrophils # (Auto) 14.66 K/uL Lymphocytes # (Auto) 1.62 K/uL Monocytes # (Auto) 0.84 K/uL Eosinophils # (Auto) 0.01 K/uL Basophils # (Auto) 0.01 K/uL RDW Standard Deviation 44.6 fL RDW Coefficient of Variation 13.5 % Immature Granulocyte % (Auto) 0.4 % Immature Granulocyte # (Auto) 0.07 K/uL Assessment and Plan This is a 76 year old demented female with a PMH of subarachnoid hemorrhage, seizure disorder, COPD, hypothyroidism - presents secondary to altered mental status, subsequently found to have sepsis and pneumonia Metabolic Encephalopathy and Sepsis secondary to likely Aspiration Pneumonia - improving patient presented with altered mental status as per family members, she was not her usual self; not walking much, not smiling , etc. Presented here with leukocytosis and tachycardia; found to have likely pneumonia has had issues with aspiration in the past and family states that she occasional has aspiration issues started on Flagyl and Zosyn; we can d/c Flagyl today and continue Zosyn for now clinically already improved; is back to ambulating we can d/c Morgan catheter continue PT/OT/speech therapy Seizure Disorder continue Keppra Hypothyroidism continue Synthroid Dementia continue Exelon DVT ppx SCDs FULL CODE - for now, as per discussion with grandson Dispo: likely discharge to home with home health in 1-2 days
--- NOTE | 2017-01-21 18:16 | NEUROLOGY CONSULTATION ---
DATE OF CONSULTATION: 01/21/2017 REASON FOR CONSULTATION: Change in mental status. HISTORY OF PRESENT ILLNESS: Mrs. Loja is well known to me. She has a longstanding seizure disorder. She also has a dementia and what is reported as a posttraumatic subarachnoid hemorrhage. Angiogram was negative for aneurysm or dissection. I am unable to access for [facility] record currently. The patient was noted to be more confused than usual and increasingly weak. Her grandson, who is her primary caregiver, elected to have her brought to the Emergency Room. She is a poor historian and having called the next of kin, there was no one available. The history is therefore taken from the chart. The patient was noted to be more confused. She had no chest pain or shortness of breath. No cough or cold. She was given Levaquin for possible pneumonia. Her grandson told the staff that she can cough easily if she is not careful with meals or coffee. PAST MEDICAL HISTORY: As above. Additionally, hypertension, seizure disorder, COPD, smoking, and esophageal dysfunction. PAST SURGICAL HISTORY: Thyroidectomy, hysterectomy, and urethral reconstruction. MEDICATIONS: From home include Celexa, Advair, DuoNeb, levothyroxine, Keppra and Exelon. I cannot currently confirm the dose of Keppra. ALLERGIES: CODEINE, TRAMADOL, AND SULFA. FAMILY HISTORY: Liver disease, breast, lung and kidney cancer, skin disease, and stroke. SOCIAL HISTORY: She has smoked cigarettes. Does not drink alcohol. REVIEW OF SYSTEMS: The patient indicates that she does not know why she is in the hospital. She has a mild frontal headache. She denies any recent falls. She occasionally gets chest pain. She has not been short of breath. She has been eating and drinking adequately. On admission, her CT of the head, which I have reviewed, shows an old right frontal infarct, moderate hypodensities in the white matter, increased density in the right MCA, which could be artifactual, although an acute thrombus could not be excluded. CTA of the head, no evidence of aneurysm. No major branch occlusion. Left frontal developmental venous anomaly. No evidence of a right MCA thrombus. MRA of the neck showed atherosclerosis of the origins of the major branch vessels. Bilateral internal carotid arteries are patent. There was atherosclerosis of the cavernous portions of the ICAs. Limited intracranial evaluation demonstrates grossly patent intracranial vasculature. Her chest x-ray did not show an infiltrate. Her CT of the abdomen and pelvis showed no acute infectious or inflammatory findings in the abdomen or pelvis. Subpleural opacities, right middle lobe, nonspecific, could represent atelectasis versus an infectious inflammatory pneumonitis. Pulmonary infarct is also considered. LABORATORY DATA: White count was 15, H&H 13/41, and platelet count 329. PT 10.7. PTT 30.3. Chemistry profile: Blood sugar was 134, BUN, creatinine, sodium and potassium were normal. Alkaline phosphatase 181. CK-MB negative, ratio 3.4. Troponin negative. TSH normal. Urinalysis negative. PHYSICAL EXAMINATION: VITAL SIGNS: Temperature 36.8, pulse 72, respiratory rate 16, blood pressure 131/75, NEUROLOGIC: The patient is awake, alert, and oriented to person only. She does not know that she is in the hospital. She is unable to pick the date and month of the year. There is no right/left confusion. No aphasia. She had difficulty naming a button, but could name a pen. Repetitions were intact. She followed a 2/3 step command. There was a paucity of spontaneous speech. Her head was normocephalic and atraumatic. No carotid bruits. No heart murmurs. Abdomen was soft. There may be mild tenderness in the bilateral flanks. No spinal deformity is noted. Her attention was poor for visual boggs. I could not exclude a right field cut. Extraocular motility was grossly normal without gaze preference. Marginal flattening of the left nasolabial fold. No resting tremor. No seizure activity is noted. Upper extremity strength was symmetric without drift. She had more difficulty initiating movement with the right leg then the left. Although, I cannot say she was definitively unilaterally week. Her reflexes were brisk. Toes were downgoing. No clear sensory abnormality to temperature. [id number] was normal. [id number], the patient did not understand the command. IMPRESSION: This patient was reported to be encephalopathic, was admitted to the hospital, started on antibiotics and given fluids. By report, she is improving, although I would say she is not quite back to her baseline. There was nothing on clinical exam to suggest that she had a seizure. Unfortunately, I cannot corroborate a history with family. I will check a Keppra level, although no doubt it will take some time to come back. I do not think an EEG is necessary, although if there were recurrent episodes of altered consciousness that might be a reasonable approach. I do see some soft bilateral signs. It might be reasonable to do an MRI of the brain, noncontrast if the patient can tolerate to evaluate for stroke. We will follow with you. NAVJOT
[2017-01-21] MEDS: CITALOPRAM 20 MG TAB PO SCH (20:38)
--- NOTE | 2017-01-21 22:46 | DIAGNOSTIC IMAGING REPORT ---
ORBIT RADIOGRAPHS 3 VIEWS HISTORY: pre-MRI screening. COMPARISON: None. FINDINGS: There are no radiopaque foreign bodies identified within the orbits. IMPRESSION: No radiopaque foreign bodies identified within the orbits. Electronically signed by: Manjinder Helton M.D. 01/21/2017 10:45 PM Dictated Date/Time: 01/21/2017 10:44 PM
[2017-01-22] VITALS (9 sets, daily range): BP systolic 104–162; BP diastolic 68–93; PULSE 84–114; TEMP 36.7–38.5; O2SAT 91–94
[2017-01-22] MEDS: PIPERACILL/TAZOBAC IV 3.375 GM in DEXTROSE 5% 100ML IV SCH ×4 (00:22→23:54)
[2017-01-22] MEDS: LEVOTHYROXINE 50 MCG TAB PO SCH (05:02)
--- NOTE | 2017-01-22 06:49 | DIAGNOSTIC IMAGING REPORT ---
BRAIN W/O FOR SEIZURE CLINICAL HISTORY: hx traumatic edwin, dementia, SMZ, change in ms mental status change TECHNIQUE: Multiaxial MRI acquisition COMPARISON STUDY: 02/28/2014 FINDINGS: Diffusion-weighted images are negative for an acute ischemic event. Generalized cerebellar as well as cerebral atrophy. Old infarct right frontal lobe. Regions of encephalomalacia versus old ischemic change right posterior parietal lobe. Considerable chronic small vessel change throughout. IMPRESSION: 1. Somewhat limited exam due to patient motion. 2. Old right frontal and right parietal infarct. 3. Mild compensatory ventricular prominence also chronic. 4. Generalized atrophy and chronic small vessel change. The above report was generated using voice recognition software. It may contain grammatical, syntax or spelling errors. Electronically signed by: Mazin Hyatt M.D. 01/22/2017 6:48 AM Dictated Date/Time: 01/22/2017 6:43 AM
[2017-01-22 06:52] LABS: BASO % 0.1 %; BASO ABS # 0.01 K/uL (0-0.2); COMPLETE YES; EOS % 0.1 %; HEMATOCRIT 37.8 % (37-47); IG% 0.3 %; LYMPH % 7.9 %; LYMPH ABS # 1.16 K/uL (1.2-3.4); MEAN CELL VOLUME 91.7 fL (80-100); MEAN CORPUSCULAR HEMOGLOBIN 31.1 pg (25-34); MEAN CORPUSCULAR HGB CONC 33.9 g/dl (32-36); MEAN PLATELET VOLUME 9.5 fL (7.4-10.4); MONO % 5.9 %; NEUT % 85.7 %; PLATELET COUNT 308 K/uL (130-400); RED BLOOD COUNT 4.12 M/uL (4.2-5.4); WHITE BLOOD COUNT 14.77 K/uL (4.8-10.8)
[2017-01-22 07:25] LABS: BUN/CREATININE RATIO 13.9 (10-20); CALCIUM 9.2 mg/dl (8.5-10.1); CREATININE 0.72 mg/dl (0.60-1.20); POTASSIUM 3.9 mmol/L (3.5-5.1)
[2017-01-22] MEDS: RIVASTIGMINE TARTRATE (EXELON) 1.5 MG CAP PO SCH ×2 (07:44→19:43)
[2017-01-22] MEDS: LEVETIRACETAM 500 MG TAB PO SCH ×2 (07:44→19:43)
[2017-01-22] MEDS: ACETAMINOPHEN 325 MG TAB PO PRN ×2 (07:44→19:41)
[2017-01-22] MEDS: FLUTICASONE/SALMETEROL 250/50 (ADVAIR) 14 PUFF/1 INHALER INH SCH ×2 (07:45→19:42)
--- NOTE | 2017-01-22 13:38 | Progress Note ---
Subjective Date of Service: Jan 22, 2017. Subjective Pt evaluation today including: conversation w/ patient, physical exam, lab review, review of studies, review of inpatient medication list Saw/examined the patient in room 217 Pleasantly demented; in no distress No problems to note today; patient's granddaughter in the room; states she is close to baseline except somewhat tired Problem List Medical Problems: (1) Altered mental status Status: Acute (2) Altered mental status Status: Acute (3) Intracranial hemorrhage Status: Acute (4) Pneumonia Status: Acute (5) Subarachnoid hemorrhage Status: Acute (6) Subdural hemorrhage Status: Acute Review of Systems Cannot obtain due to patient's mental status Medications Current Inpatient Medications Medications (Trade) Dose Ordered Sig/Dora Route Start Time Stop Time Status Last Admin Dose Admin Ioversol (Optiray 320) 100 ml UD PRN IV 01/20/17 23:45 01/24/17 23:44 Acetaminophen (Tylenol Tab) 650 mg Q4H PRN PO 01/21/17 02:45 02/20/17 02:44 01/22/17 07:44 650 MG Nitroglycerin (Nitrostat Tab) 0.4 mg UD PRN SL 01/21/17 02:45 02/20/17 02:44 Oxycodone/ Acetaminophen (Percocet 5-325mg Tab) 1 tab Q6H PRN PO 01/21/17 02:45 02/04/17 02:44 Ondansetron HCl (Zofran Inj) 4 mg Q6H PRN IV 01/21/17 02:45 02/20/17 02:44 01/21/17 05:35 4 MG Piperacillin Sod/ Tazobactam Sod (Consult) 1 ea UD PRN N/A 01/21/17 09:00 02/20/17 08:59 Salmeterol Xinafoate/ Fluticasone (Advair Diskus 250/50 Inh) 1 puff BID INH 01/21/17 09:00 02/20/17 08:59 01/22/17 07:45 1 PUFF Levetiracetam (Keppra Tab) 1,000 mg BID PO 01/21/17 09:00 02/20/17 08:59 01/22/17 07:44 1,000 MG Levothyroxine Sodium (Synthroid Tab) 50 mcg DAILYBB PO 01/21/17 06:00 02/20/17 05:59 01/22/17 05:02 50 MCG Citalopram Hydrobromide (celeXA TAB) 10 mg HS PO 01/21/17 21:00 02/20/17 20:59 01/21/17 20:38 10 MG Rivastigmine Tartrate (Exelon Cap) 3 mg BID PO 01/21/17 09:00 02/20/17 08:59 01/22/17 07:44 3 MG Piperacillin Sod/ Tazobactam Sod 3.375 gm/Dextrose 115 ml @ 28.75 mls/ hr Q8H IV 01/21/17 08:00 01/28/17 07:59 01/22/17 07:49 28.75 MLS/HR Ipratropium [place] (Atrovent 0.02% 0.5MG/2.5ML Neb) 0.5 mg Q4H PRN INH 01/21/17 05:00 02/20/17 04:59 Levalbuterol (Xopenex 1.25MG/ 0.5ML Neb) 1.25 mg Q4H PRN INH 01/21/17 05:00 02/20/17 04:59 Objective Vital Signs Date Time Temp Pulse Resp B/P (MAP) Pulse Ox O2 Delivery O2 Flow Rate FiO2 01/22/17 12:00 Room Air 01/22/17 10:46 37.4 84 20 104/68 (80) 92 Room Air 01/22/17 09:48 36.7 Room Air 01/22/17 08:00 Room Air 01/22/17 07:04 38.5 91 20 130/86 (101) 92 Room Air 01/22/17 04:00 Room Air 01/22/17 02:49 37.0 99 18 162/93 (116) 91 Room Air 01/22/17 00:06 36.8 102 22 159/81 (107) 92 Room Air 01/21/17 23:59 Room Air 01/21/17 20:00 Room Air 01/21/17 19:20 37.0 77 18 154/81 (105) 94 Room Air 01/21/17 16:00 Room Air 01/21/17 15:30 36.8 72 16 131/75 (93) 95 Room Air Physical Exam General Appearance: no apparent distress Respiratory/Chest: lungs clear, normal breath sounds, no respiratory distress, no accessory muscle use Cardiovascular: regular rate, rhythm, no edema, no murmur Abdomen: normal bowel sounds, non tender, soft Extremities: normal inspection, no pedal edema Neurologic/Psychiatric: alert, + pertinent finding (pleasantly demented) Laboratory Results Last 24 Hours Test 01/21/17 17:24 01/22/17 06:07 White Blood Count 14.77 K/uL Red Blood Count 4.12 M/uL Hemoglobin 12.8 g/dL Hematocrit 37.8 % Mean Corpuscular Volume 91.7 fL Mean Corpuscular Hemoglobin 31.1 pg Mean Corpuscular Hemoglobin Concent 33.9 g/dl Platelet Count 308 K/uL Mean Platelet Volume 9.5 fL Neutrophils (%) (Auto) 85.7 % Lymphocytes (%) (Auto) 7.9 % Monocytes (%) (Auto) 5.9 % Eosinophils (%) (Auto) 0.1 % Basophils (%) (Auto) 0.1 % Neutrophils # (Auto) 12.67 K/uL Lymphocytes # (Auto) 1.16 K/uL Monocytes # (Auto) 0.87 K/uL Eosinophils # (Auto) 0.01 K/uL Basophils # (Auto) 0.01 K/uL RDW Standard Deviation 47.3 fL RDW Coefficient of Variation 14.0 % Immature Granulocyte % (Auto) 0.3 % Immature Granulocyte # (Auto) 0.05 K/uL Sodium Level 138 mmol/L Potassium Level 3.9 mmol/L Chloride Level 107 mmol/L Carbon Dioxide Level 23 mmol/L Anion Gap 8.0 mmol/L Blood Urea Nitrogen 10 mg/dl Creatinine 0.72 mg/dl Est Creatinine Clear Calc Drug Dose 71.4 ml/min Estimated GFR () 95.6 Estimated GFR (Non- 82.5 BUN/Creatinine Ratio 13.9 Random Glucose 132 mg/dl Calcium Level 9.2 mg/dl Assessment and Plan This is a 76 year old demented female with a PMH of subarachnoid hemorrhage, seizure disorder, COPD, hypothyroidism - presents secondary to altered mental status, subsequently found to have sepsis and pneumonia Metabolic Encephalopathy and Sepsis secondary to likely Aspiration Pneumonia - improving 01/22 appreciate neurology input Brain MRI negative for acute process; chronic changes noted spiked a fever this morning, will continue IV abx. for 1 day if afebrile x24hrs, can d/c home with home health 01/21 patient presented with altered mental status as per family members, she was not her usual self; not walking much, not smiling , etc. Presented here with leukocytosis and tachycardia; found to have likely pneumonia has had issues with aspiration in the past and family states that she occasional has aspiration issues started on Flagyl and Zosyn; we can d/c Flagyl today and continue Zosyn for now clinically already improved; is back to ambulating we can d/c Morgan catheter continue PT/OT/speech therapy Seizure Disorder continue Keppra Hypothyroidism continue Synthroid Dementia continue Exelon DVT ppx SCDs FULL CODE - for now, as per discussion with grandson Dispo: likely discharge to home with home health in 1-2 days
[2017-01-22] MEDS: CITALOPRAM 20 MG TAB PO SCH (19:42)
--- NOTE | 2017-01-22 22:27 | NEUROLOGY CONSULTATION ---
DATE OF CONSULTATION: 01/22/2017 I am seeing Mrs. Loja in followup of a change in mental status MRI of the brain shows no acute abnormality. 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 PHYSICAL EXAMINATION: VITAL SIGNS: On today's exam when I had seen her; 37.3, 88, 20, 137/84, 94%. NEUROLOGIC: The patient is awake, alert, confused, some modest expressive language dysfunction consistent with her dementia, mild flattening of the left nasolabial fold. No asymmetric weakness in the uppers. IMPRESSION: 1. Delirium superimposed on dementia. No evidence of a nre primary central nervous system process such as infarct. 2. History of seizure, on Keppra. No reported seizure noted. I will sign off at present. Please reconsult if necessary. MTDD
[2017-01-23 02:59] VITALS: BP 146/79; PULSE 79; TEMP 37.4; O2SAT 93
[2017-01-23] MEDS: LEVOTHYROXINE 50 MCG TAB PO SCH (06:19)
[2017-01-23 06:47] LABS: HEMATOCRIT 36.6 % (37-47); MEAN CELL VOLUME 92.4 fL (80-100); MEAN CORPUSCULAR HEMOGLOBIN 31.6 pg (25-34); MEAN CORPUSCULAR HGB CONC 34.2 g/dl (32-36); MEAN PLATELET VOLUME 9.4 fL (7.4-10.4); PLATELET COUNT 286 K/uL (130-400); RED BLOOD COUNT 3.96 M/uL (4.2-5.4); WHITE BLOOD COUNT 10.49 K/uL (4.8-10.8)
[2017-01-23 07:24] VITALS: BP 149/83; PULSE 85; TEMP 37.3; O2SAT 91
[2017-01-23] MEDS: RIVASTIGMINE TARTRATE (EXELON) 1.5 MG CAP PO SCH (08:38)
[2017-01-23] MEDS: LEVETIRACETAM 500 MG TAB PO SCH (08:38)
[2017-01-23] MEDS: FLUTICASONE/SALMETEROL 250/50 (ADVAIR) 14 PUFF/1 INHALER INH SCH (08:38)
[2017-01-23] MEDS: PIPERACILL/TAZOBAC IV 3.375 GM in DEXTROSE 5% 100ML IV SCH (08:38)
--- NOTE | 2017-01-23 10:02 | Progress Note ---
Subjective Date of Service: Jan 23, 2017. Subjective Pt evaluation today including: conversation w/ patient, physical exam, lab review, review of studies, review of inpatient medication list Saw/examined the patient in room 217 Patient is doing much better verbalizes that she wants to go home; feels fine, more awake/alert today Problem List Medical Problems: (1) Altered mental status Status: Acute (2) Altered mental status Status: Acute (3) Intracranial hemorrhage Status: Acute (4) Pneumonia Status: Acute (5) Subarachnoid hemorrhage Status: Acute (6) Subdural hemorrhage Status: Acute Review of Systems Cannot obtain due to patient's mental status Medications Current Inpatient Medications Medications (Trade) Dose Ordered Sig/Dora Route Start Time Stop Time Status Last Admin Dose Admin Ioversol (Optiray 320) 100 ml UD PRN IV 01/20/17 23:45 01/24/17 23:44 Acetaminophen (Tylenol Tab) 650 mg Q4H PRN PO 01/21/17 02:45 02/20/17 02:44 01/22/17 19:41 650 MG Nitroglycerin (Nitrostat Tab) 0.4 mg UD PRN SL 01/21/17 02:45 02/20/17 02:44 Oxycodone/ Acetaminophen (Percocet 5-325mg Tab) 1 tab Q6H PRN PO 01/21/17 02:45 02/04/17 02:44 Ondansetron HCl (Zofran Inj) 4 mg Q6H PRN IV 01/21/17 02:45 02/20/17 02:44 01/21/17 05:35 4 MG Piperacillin Sod/ Tazobactam Sod (Consult) 1 ea UD PRN N/A 01/21/17 09:00 02/20/17 08:59 Salmeterol Xinafoate/ Fluticasone (Advair Diskus 250/50 Inh) 1 puff BID INH 01/21/17 09:00 02/20/17 08:59 01/23/17 08:38 1 PUFF Levetiracetam (Keppra Tab) 1,000 mg BID PO 01/21/17 09:00 02/20/17 08:59 01/23/17 08:38 1,000 MG Levothyroxine Sodium (Synthroid Tab) 50 mcg DAILYBB PO 01/21/17 06:00 02/20/17 05:59 01/23/17 06:19 50 MCG Citalopram Hydrobromide (celeXA TAB) 10 mg HS PO 01/21/17 21:00 02/20/17 20:59 01/22/17 19:42 10 MG Rivastigmine Tartrate (Exelon Cap) 3 mg BID PO 01/21/17 09:00 02/20/17 08:59 01/23/17 08:38 3 MG Piperacillin Sod/ Tazobactam Sod 3.375 gm/Dextrose 115 ml @ 28.75 mls/ hr Q8H IV 01/21/17 08:00 01/28/17 07:59 01/23/17 08:38 28.75 MLS/HR Ipratropium [place] (Atrovent 0.02% 0.5MG/2.5ML Neb) 0.5 mg Q4H PRN INH 01/21/17 05:00 02/20/17 04:59 Levalbuterol (Xopenex 1.25MG/ 0.5ML Neb) 1.25 mg Q4H PRN INH 01/21/17 05:00 02/20/17 04:59 Objective Vital Signs Date Time Temp Pulse Resp B/P (MAP) Pulse Ox O2 Delivery O2 Flow Rate FiO2 01/23/17 08:00 Room Air 01/23/17 07:24 37.3 85 20 149/83 (105) 91 Room Air 01/23/17 04:00 Room Air 01/23/17 02:59 37.4 79 18 146/79 (101) 93 Room Air 01/23/17 00:00 Room Air 01/22/17 23:47 37.1 87 21 133/81 (98) 92 Room Air 01/22/17 20:41 37.4 01/22/17 20:00 Room Air 01/22/17 19:23 38.1 114 22 147/85 (105) 92 Room Air 01/22/17 16:00 Room Air 01/22/17 15:54 37.3 88 20 137/84 (101) 94 Room Air 01/22/17 12:00 Room Air 01/22/17 10:46 37.4 84 20 104/68 (80) 92 Room Air Physical Exam General Appearance: no apparent distress Respiratory/Chest: chest non-tender, lungs clear, normal breath sounds, no respiratory distress, no accessory muscle use Cardiovascular: regular rate, rhythm, no edema, no murmur Laboratory Results Last 24 Hours Test 01/23/17 06:34 White Blood Count 10.49 K/uL Red Blood Count 3.96 M/uL Hemoglobin 12.5 g/dL Hematocrit 36.6 % Mean Corpuscular Volume 92.4 fL Mean Corpuscular Hemoglobin 31.6 pg Mean Corpuscular Hemoglobin Concent 34.2 g/dl RDW Standard Deviation 48.6 fL RDW Coefficient of Variation 14.3 % Platelet Count 286 K/uL Mean Platelet Volume 9.4 fL Assessment and Plan This is a 76 year old demented female with a PMH of subarachnoid hemorrhage, seizure disorder, COPD, hypothyroidism - presents secondary to altered mental status, subsequently found to have sepsis and pneumonia Metabolic Encephalopathy and Sepsis secondary to likely Aspiration Pneumonia - improving 01/23 no fevers, no leukocytosis plan is to discharge on Augmentin for five days 01/22 appreciate neurology input Brain MRI negative for acute process; chronic changes noted spiked a fever this morning, will continue IV abx. for 1 day if afebrile x24hrs, can d/c home with home health 01/21 patient presented with altered mental status as per family members, she was not her usual self; not walking much, not smiling , etc. Presented here with leukocytosis and tachycardia; found to have likely pneumonia has had issues with aspiration in the past and family states that she occasional has aspiration issues started on Flagyl and Zosyn; we can d/c Flagyl today and continue Zosyn for now clinically already improved; is back to ambulating we can d/c Morgan catheter continue PT/OT/speech therapy Seizure Disorder continue Keppra Hypothyroidism continue Synthroid Dementia continue Exelon DVT ppx SCDs FULL CODE - for now, as per discussion with grandson Dispo: likely discharge to home with home health in 1-2 days
[2017-01-23] MEDS ORDERED: AMOX875T PO (10:04)
--- NOTE | 2017-01-23 10:18 | Discharge Instructions ---
Discharge Instructions Date of Service Jan 23, 2017. Admission Reason for Admission: Encephalopathy Discharge Discharge Diagnosis / Problem: Metabolic Encephalopathy and Sepsis secondary to Aspiration Pneumonia Discharge Goals Goal(s): Decrease discomfort, Improve function, Diagnostic testing, Therapeutic intervention Activity Recommendations Activity Limitations: resume your previous activity . Instructions / Follow-Up Instructions / Follow-Up Please follow-up with Dr. Moreno on January 27 at 2:05PM Discharged with Augmentin (antibiotic) for 5 days Current Hospital Diet Patient's current hospital diet: AHA Diet (Heart Healthy) Discharge Diet Recommended Diet: AHA Diet (Heart Healthy) Pending Studies Studies pending at discharge: no Laboratory Results Hemoglobin A1c Test 01/21/17 06:43 Range/Units Estimated Average Glucose 117 mg/dl Hemoglobin A1c 5.7 H 4.5-5.6 % Medical Emergencies . Who to Call and When: Medical Emergencies: If at any time you feel your situation is an emergency, please call 911 immediately. . Non-Emergent Contact Non-Emergency issues call your: Primary Care Provider . . "Provider Documentation" section prepared by Filiberto Saleem. . VTE Core Measure Inpt VTE Proph given/why not?: SCD's (hx. of SAH)
--- NOTE | 2017-01-23 10:20 | Discharge Summary ---
Discharge Summary Date of Service Jan 23, 2017. Discharge Summary Admission Date: Jan 21, 2017 at 01:37 Discharge Date: Jan 23, 2017 Discharge Disposition: Home with services Principal Diagnosis: Metabolic Encephalopathy and Sepsis secondary to Aspiration Pneumonia Medication Reconciliation New Medications: Amoxicillin & Pot Clavulanate (Augmentin 875-125 mg) 1 Tab Tab 1 TAB PO BID for 5 Days, #10 TAB Continued Medications: Citalopram Hydrobromide (Citalopram Hydrobromide) 10 Mg Tab 10 MG PO HS Fluticasone Prop/Salmeterol (Advair Diskus 250/50 60 Dose) 1 Ea Aerp 1 PUFF INH BID, INHALER Ipratropium-Albuterol (Duoneb) 3 Ml Nebu 1 TREATMENT INH QID PRN for SOB/Wheezing, INHA Levetiractam (Levetiracetam) 500 Mg Tab 1000 MG PO BID Levothyroxine Sodium (Levothyroxine Sodium) 50 Mcg Tab 50 MCG PO DAILY Rivastigmine Tartrate (Exelon) 3 Mg Cap 3 MG PO BID, CAP Admission Information HPI (per Admitting provider): DATE OF ADMISSION: 01/21/2017 PRIMARY CARE DOCTOR: Dr. Edwards. CHIEF COMPLAINT: Altered mental status as per records. HISTORY OF PRESENT ILLNESS: History obtained from the patient's grandson and records. Unable to obtain history secondary to the patient's dementia. Medical history significant for dementia, hypertension, hx ischemic CVA as per records, history of subarachnoid hemorrhage, epilepsy, COPD, ongoing tobacco abuse, history of esophageal dysfunction as per records. Recent confinement at [facility] in 04/2016 for traumatic subarachnoid hemorrhage. Angiogram was negative for aneurysm or dissection. Patient was intubated in the ICU, subsequently extubated. Subsequently discharged to rehabilitation then home. Yesterday, the patient noted to be more confused than usual, increasingly weak. Loose stools noted as well as per records. No chest pain, no shortness of breath, no unusual cough symptoms as per grandson. As per grandson, the patient noted to be coughing if she is not careful with meals and coffee. Patient brought to the Emergency Room, given Levaquin for possible pneumonia. MEDICAL HISTORY: As above. SURGERIES: Thyroidectomy, hysterectomy, urethral reconstruction. HOME MEDICATIONS: Include citalopram, Advair Diskus, DuoNeb, levothyroxine, Exelon. ALLERGIES: TO CODEINE, TRAMADOL, SULFA. FAMILY HISTORY: Liver disease; breast, lung, kidney cancer; skin cancer; stroke. PERSONAL AND SOCIAL HISTORY: Past tobacco abuse. No chronic intake of alcoholic beverages. Lives with grandson. REVIEW OF SYSTEMS: Could not be obtained. PHYSICAL EXAMINATION: VITAL SIGNS: Blood pressure noted to be initially 216/132, later 160/80; pulse rate 113, later 92; RR 20; 36.6; sats 95 on room air. GENERAL: Noted to be demented, follows some commands, hard of hearing. SKIN: Normal color. HEENT: [place] palpebral conjunctivae, dry mucosa. NECK: No JVD. Supple CHEST: Decreased breath sounds. HEART: Regular rate and rhythm. ABDOMEN: Soft. EXTREMITIES: No edema, no tenderness. NEUROLOGIC: Demented, hard of hearing. LABORATORY DATA: Hemoglobin was noted to be 13.9, hematocrit 41.7, white blood cell count 15, platelets 339. Sodium 136, potassium 3.8, chloride 105, CO2 of 22, BUN 30, creatinine 0.7, glucose 134. IMAGING DATA: CT head initial read showed old right frontal infarct, no acute hemorrhage. CT head angio showed no evidence of aneurysm, left frontal developmental venous anomaly. CT abdomen and pelvis, no evidence of hepatitis, Morgan catheter, patchy consolidation, atelectasis right mid lung. ASSESSMENT: 1. Encephalopathy secondary to sepsis Possible sources : aspiration pneumonia, history of esophageal dysfunction Diarrhea rule out C. difficile 2. Dementia. 3. Seizure disorder, stable. 4. History of intracranial hemorrhage. 5. History of ischemic cerebrovascular accident. 6. COPD, past tobacco abuse. Although with episodes of tachypnea, patient currently not in respiratory distress. 7. Hyperglycemia, rule out diabetes. PLAN: PCU. Cultures. Aspiration precautions. Zosyn. Swallow eval consult RE patient caregiver indication regarding aspiration precautions Stool C. difficile, Flagyl for now for presumptive C. difficile in light of sepsis criteria, DC Flagyl if C. difficile negative PT/OT eval. Check hemoglobin A1c. DVT prophylaxis, SCDs, RE recent SAH Full code as per grandson/caregiver, Jenaro. Awaiting call back from patient's daughter, Cely Valero ([phone]) to address code status Hospital Course This is a 76 year old demented female with a PMH of subarachnoid hemorrhage, seizure disorder, COPD, hypothyroidism - presents secondary to altered mental status, subsequently found to have sepsis and pneumonia Metabolic Encephalopathy and Sepsis secondary to likely Aspiration Pneumonia - improving 01/23 no fevers, no leukocytosis plan is to discharge on Augmentin for five days 01/22 appreciate neurology input Brain MRI negative for acute process; chronic changes noted spiked a fever this morning, will continue IV abx. for 1 day if afebrile x24hrs, can d/c home with home health 01/21 patient presented with altered mental status as per family members, she was not her usual self; not walking much, not smiling , etc. Presented here with leukocytosis and tachycardia; found to have likely pneumonia has had issues with aspiration in the past and family states that she occasional has aspiration issues started on Flagyl and Zosyn; we can d/c Flagyl today and continue Zosyn for now clinically already improved; is back to ambulating we can d/c Morgan catheter continue PT/OT/speech therapy Seizure Disorder continue Keppra Hypothyroidism continue Synthroid Dementia continue Exelon DVT ppx SCDs FULL CODE - for now, as per discussion with grandson Dispo: likely discharge to home with home health in 1-2 days Total time spent on discharge = 40 minutes This includes examination of the patient, discharge planning, medication reconciliation, and communication with other providers. Discharge Instructions Please follow-up with Dr. Moreno on January 27 at 2:05PM Discharged with Augmentin (antibiotic) for 5 days
[2017-01-23 11:00] VITALS: BP 149/83; PULSE 85; TEMP 37.3; O2SAT 91
[2017-01-23 11:27] VITALS: BP 146/84; PULSE 87; TEMP 37.6; O2SAT 92
== END 2017-01-23 14:10 | disposition home health service (06) | DRG 871 ==
LOC: EDBD 21:54 → C.EDC 21:55 → C.2T 01-21 01:37 → EDBEDREQ 01-21 01:42 → ENRESERV 01-21 01:46
PROVIDERS: ADMIT Internal Medicine; ATTEND Family Medicine
DX: A41.9 Sepsis, unspecified organism (principal); J69.0 Pneumonitis due to inhalation of food and vomit; G93.41 Metabolic encephalopathy; F03.90 Unspecified dementia, unspecified severity, without behavioral disturbance, psychotic disturbance, mood disturbance, and anxiety; G40.909 Epilepsy, unspecified, not intractable, without status epilepticus; J44.9 Chronic obstructive pulmonary disease, unspecified; I10 Essential (primary) hypertension; E11.65 Type 2 diabetes mellitus with hyperglycemia; Z86.73 Personal history of transient ischemic attack (TIA), and cerebral infarction without residual deficits; Z87.891 Personal history of nicotine dependence; Z86.79 Personal history of other diseases of the circulatory system; Z87.19 Personal history of other diseases of the digestive system; Z79.899 Other long term (current) drug therapy; Z79.51 Long term (current) use of inhaled steroids

== ENCOUNTER 2017-07-30 20:46 | Emergency (ER) | payer OTHER ==
[~2017-07-30] VITALS: Ht 154.9 cm; Wt 91.2 kg
[~2017-07-30 20:46] MED LIST changes: +AMOX1TAB43 PO; +PROP10TA7 PO
[2017-07-30 21:07] VITALS: TEMP 37.1; Ht 154.9 cm; Wt 91.2 kg
[2017-07-30] MEDS ORDERED: ONDANSETRON INJ 2 MG/ML 2 ML VIAL IV STA (21:17)
[2017-07-30] MEDS ORDERED: ALBUT/IPRATROP 3MG/0.5MG NEB 3 ML VIAL INH STA (21:21)
[2017-07-30] MEDS ORDERED: MoRPHine SULFATE 4 MG/ML 1 ML CARP\\VIAL IV PRN (21:30)
[2017-07-30] MEDS ORDERED: CLX/20 PO (21:37)
[2017-07-30 21:39] LABS: BASO % 0.3 %; BASO ABS # 0.02 K/uL (0-0.2); EOS % 3.5 %; EOS ABS # 0.26 K/uL (0-0.5); HEMATOCRIT 38.1 % (37-47); HEMOGLOBIN 12.9 g/dL (12.0-16.0); IG# 0.02 K/uL (0.00-0.02); LYMPH % 28.3 %; MEAN CORPUSCULAR HEMOGLOBIN 31.2 pg (25-34); MEAN CORPUSCULAR HGB CONC 33.9 g/dl (32-36); MEAN PLATELET VOLUME 9.3 fL (7.4-10.4); MONO % 7.3 %; MONO ABS # 0.54 K/uL (0.11-0.59); NEUT % 60.3 %; NEUT ABS # 4.47 K/uL (1.4-6.5); PLATELET COUNT 324 K/uL (130-400); RED CELL DISTRIBUTION WIDTH CV 14.1 % (11.5-14.5); RED CELL DISTRIBUTION WIDTH SD 47.7 fL (36.4-46.3); WHITE BLOOD COUNT 7.41 K/uL (4.8-10.8)
--- NOTE | 2017-07-30 21:43 | EMERGENCY ROOM VISIT NOTE ---
History Report prepared by Jessica: Tyrone Chaidez Under the Supervision of: Dr. Roberto Rahman M.D. First contact with patient: 21:11 Chief Complaint: SHOULDER PAIN Stated Complaint: FALL/ L SHOULDER PAIN History of Present Illness The patient is a 77 year old female who presents to the Emergency Room with complaints of a sudden fall occurring prior to arrival. The patient's grandson states that the patient turned around, and she fell and hit her left shoulder. She is now complaining of left shoulder pain as well as neck pain. The patient usually has a problem with her balance, though she does not use a wheel chair or walker. The patient has not had any loss of consciousness, and she denies any leg pain or chest pain. She has a history of a hemorrhagic stroke and COPD, and her grandson states that her speech is at her baseline--it is always slurred. The grandson states that the patient has been doing well recently until this fall today. Source of History: patient Onset: prior to arrival Position: other (global) Quality: other (fall) Timing: other (sudden) Associated Symptoms: + neck pain, No chest pain Note: Associated symptoms: Left shoulder pain. Review of Systems See HPI for pertinent positives & negatives. A total of 10 systems reviewed and were otherwise negative. Past Medical & Surgical Medical Problems: (1) Cerebral aneurysm, nonruptured (2) COPD (chronic obstructive pulmonary disease) (3) Dementia (4) Epilepsy (5) Hypothyroidism (6) Intraparenchymal hemorrhage of brain (7) Osteoporosis (8) Subarachnoid hemorrhage (9) TIA (transient ischemic attack) Surgical Problems: (1) H/O thyroidectomy (2) History of hysterectomy Family History FH: breast cancer MOTHER Stroke SISTER Social History Smoking Status: Former Smoker Alcohol Use: none Housing Status: lives with family Current/Historical Medications Scheduled Citalopram (Citalopram Hydrobromide), 20 MG PO HS Levetiractam (Levetiracetam), 1,000 MG PO BID Levothyroxine Sodium (Levothyroxine Sodium), 50 MCG PO DAILY Propranolol (Inderal), 10 MG PO BID Rivastigmine Tartrate (Exelon), 3 MG PO BID Scheduled PRN Acetaminophen (Tylenol Extra Strength), 2 TAB PO Q8 PRN for Pain Fluticasone Prop/Salmeterol (Advair Diskus 250/50 60 Dose), 1 PUFF INH BID PRN for Shortness of Breath Ipratropium-Albuterol (Duoneb), 1 TREATMENT INH QID PRN for SOB/Wheezing Allergies Coded Allergies: Sulfa Drugs (Verified Allergy, Intermediate, headache, 07/30/17) Codeine (Verified Allergy, Mild, vomiting, 07/30/17) Tramadol (Verified Adverse Reaction, Unknown, CAN NOT HAVE DUE TO RISK OF SEIZURES, 07/30/17) Physical Exam Vital Signs Date Time Temp Pulse Resp B/P (MAP) Pulse Ox O2 Delivery O2 Flow Rate FiO2 07/30/17 22:28 70 18 184/91 93 Room Air 07/30/17 21:07 37.1 72 18 186/90 94 Room Air 07/30/17 20:57 60 Physical Exam GENERAL: Patient is in no acute distress. HEENT: No acute trauma, normocephalic atraumatic, mucous membranes moist, no nasal congestion, no scleral icterus. NECK: Diffusely mildly tender to the C spine. No step off. No stridor, no adenopathy, no meningismus, trachea is midline. LUNGS: Wheezing bilaterally. Breath sounds equal. No rhonchi. No respiratory distress. HEART: Without murmurs gallops or rubs, regular rate and rhythm. ABDOMEN: Soft, nontender, bowel sounds positive, no hernias, no peritonitis. EXTREMITIES: No edema or evidence of lower extremity deformity. Movement of all lower extremity joints without pain. Movement and palpation of the left shoulder causes pain. No gross deformity. Left elbow and left wrist are non- tender. Left clavicle is non-tender. NEUROLOGIC: Expressive aphasia which is apparently baseline. No obvious focal motor deficits. Awake and alert. SKIN: No rash, no jaundice, no diaphoresis. Medical Decision & Procedures ER Provider Diagnostic Interpretation: Radiology results as stated below per my review and radiologist interpretation: L SHOULDER MIN 2 VIEWS ROUTINE CLINICAL HISTORY: Left shoulder pain following fall. COMPARISON: None FINDINGS: Alignment of the left shoulder is anatomic. No definite fracture is identified. There is subtle cortical irregularity of the superolateral aspect of the left humeral head. IMPRESSION: Subtle cortical irregularity of the superolateral aspect of the left humeral head. This may reflect a nondisplaced fracture. Electronically signed by: Nito Hinojosa M.D. 07/30/2017 10:22 PM Dictated Date/Time: 07/30/2017 10:18 PM L HUMERUS MIN 2 VIEWS ROUTINE CLINICAL HISTORY: fall, pain COMPARISON: None FINDINGS: Possible nondisplaced fracture of the left humeral head is better depicted on the left shoulder radiographs. There is no definite acute fracture of the left humerus. Alignment of the left glenohumeral joint appears anatomic. IMPRESSION: No definite acute left humeral fracture. The possible acute nondisplaced left humeral head fracture is better depicted on the left shoulder radiographs. Electronically signed by: Nito Hinojosa M.D. 07/30/2017 10:24 PM Dictated Date/Time: 07/30/2017 10:[address] OF THE HEAD WITHOUT CONTRAST CLINICAL HISTORY: Fall. Altered mental status. COMPARISON STUDY: Head CT and CTA of the head April 09, 2017. CT DOSE: 1605.36 mGy.cm TECHNIQUE: Helical axial images of the head were obtained without IV contrast. Automated exposure control was utilized for the study. A dose lowering technique was utilized adhering to the principles of ALARA. FINDINGS: Negative Cutter tomogram demonstrates a possible nondisplaced distal right clavicular fracture. Study is mildly compromised by motion artifact. No acute intracranial hemorrhage, midline shift or mass effect is present. Old right frontal lobe infarcts are noted. White matter hypodensity is consistent with small vessel disease. This is unchanged. There are no findings to suggest acute dural sinus thrombosis or acute territorial infarct. Basilar cisterns are patent. There are no extra axial collections. Sensitivity for detection of nondisplaced calvarial fractures is diminished but none are identified. IMPRESSION: 1. No acute intracranial findings. 2. Study mildly compromised by motion artifact. No displaced calvarial fractures. 3. Possible acute nondisplaced distal right clavicular fracture. Electronically signed by: Nito Hinojosa M.D. 07/30/2017 9:57 PM Dictated Date/Time: 07/30/2017 9:52 PM CHEST ONE VIEW PORTABLE CLINICAL HISTORY: EVALUATE ALTERED MENTAL STATUS/WEAKNESS COMPARISON STUDY: Chest radiograph April 11, 2017. FINDINGS: There is no pneumothorax or pleural effusion. Lung volumes are mildly diminished. Cardiomediastinal silhouette is stable and there is no evidence for pulmonary edema. Mild right lower lung opacity is unchanged and favors atelectasis. IMPRESSION: No acute cardiopulmonary findings. Electronically signed by: Nito Hinojosa M.D. 07/30/2017 10:18 PM Dictated Date/Time: 07/30/2017 10:[address] OF THE CERVICAL SPINE WITHOUT CONTRAST CLINICAL HISTORY: Fall. Pain. COMPARISON STUDY: Cervical spine CT August 31, 2014. TECHNIQUE: Helical axial images of the cervical spine were obtained without IV contrast. Sagittal and coronal reconstructions were viewed. A dose lowering technique was utilized adhering to the principles of ALARA. FINDINGS: Craniocervical junction is intact. Alignment of the cervical spine is anatomic. There is no acute cervical spine fracture. There is no prevertebral edema. Moderate multilevel degenerative disc disease and facet arthrosis within the cervical spine is noted. IMPRESSION: No acute cervical spine fracture or subluxation. Electronically signed by: Nito Hinojosa M.D. 07/30/2017 10:01 PM Dictated Date/Time: 07/30/2017 9:[address] OF THE LEFT SHOULDER WITHOUT CONTRAST CLINICAL HISTORY: Left shoulder pain following fall. COMPARISON STUDY: Left shoulder and humerus radiograph performed earlier today. TECHNIQUE: Axial images of the left shoulder were obtained without IV contrast. Sagittal and coronal reconstructions were viewed. FINDINGS: Alignment of the left glenohumeral and acromioclavicular joints is anatomic. There is a left shoulder joint effusion with lipohemarthrosis which suggests an acute intra-articular fracture. No definite acute proximal left humeral fracture is identified. There is subtle cortical irregularity of the posterior superior aspect of the left humeral head. This is equivocal for an acute nondisplaced fracture. There is no acute fracture of the left glenoid. No acute left-sided rib fractures are identified. There is no left pneumothorax. IMPRESSION: Left shoulder joint effusion with lipohemarthrosis which suggests an acute intra-articular fracture. No definite acute fracture identified. Subtle cortical irregularity of the posterior superior aspect of the left humeral head could reflect an acute nondisplaced fracture. Electronically signed by: Nito Hinojosa M.D. 07/30/2017 11:13 PM Dictated Date/Time: 07/30/2017 10:58 PM Laboratory Results 07/30/17 21:10 Red Blood Count 4.14, Mean Corpuscular Volume 92.0, Mean Corpuscular Hemoglobin 31.2, Mean Corpuscular Hemoglobin Concent 33.9, Mean Platelet Volume 9.3, Neutrophils (%) (Auto) 60.3, Lymphocytes (%) (Auto) 28.3, Monocytes (%) (Auto) 7.3, Eosinophils (%) (Auto) 3.5, Basophils (%) (Auto) 0.3, Neutrophils # (Auto) 4.47, Lymphocytes # (Auto) 2.10, Monocytes # (Auto) 0.54, Eosinophils # (Auto) 0.26, Basophils # (Auto) 0.02 07/30/17 21:10 Test 07/30/17 21:10 07/30/17 22:20 White Blood Count 7.41 K/uL (4.8-10.8) Red Blood Count 4.14 M/uL (4.2-5.4) Hemoglobin 12.9 g/dL (12.0-16.0) Hematocrit 38.1 % (37-47) Mean Corpuscular Volume 92.0 fL (80-100) Mean Corpuscular Hemoglobin 31.2 pg (25-34) Mean Corpuscular Hemoglobin Concent 33.9 g/dl (32-36) Platelet Count 324 K/uL (130-400) Mean Platelet Volume 9.3 fL (7.4-10.4) Neutrophils (%) (Auto) 60.3 % Lymphocytes (%) (Auto) 28.3 % Monocytes (%) (Auto) 7.3 % Eosinophils (%) (Auto) 3.5 % Basophils (%) (Auto) 0.3 % Neutrophils # (Auto) 4.47 K/uL (1.4-6.5) Lymphocytes # (Auto) 2.10 K/uL (1.2-3.4) Monocytes # (Auto) 0.54 K/uL (0.11-0.59) Eosinophils # (Auto) 0.26 K/uL (0-0.5) Basophils # (Auto) 0.02 K/uL (0-0.2) RDW Standard Deviation 47.7 fL (36.4-46.3) RDW Coefficient of Variation 14.1 % (11.5-14.5) Immature Granulocyte % (Auto) 0.3 % Immature Granulocyte # (Auto) 0.02 K/uL (0.00-0.02) Anion Gap 7.0 mmol/L (3-11) Est Creatinine Clear Calc Drug Dose 58.8 ml/min Estimated GFR () 77.7 Estimated GFR (Non- 67.0 BUN/Creatinine Ratio 21.9 (10-20) Calcium Level 8.9 mg/dl (8.5-10.1) Magnesium Level 2.1 mg/dl (1.8-2.4) Total Bilirubin 0.2 mg/dl (0.2-1) Aspartate Amino Transf (AST/SGOT) 20 U/L (15-37) Alanine Aminotransferase (ALT/SGPT) 24 U/L (12-78) Alkaline Phosphatase 137 U/L (45-117) Total Protein 6.8 gm/dl (6.4-8.2) Albumin 3.3 gm/dl (3.4-5.0) Globulin 3.5 gm/dl (2.5-4.0) Albumin/Globulin Ratio 0.9 (0.9-2) Thyroid Stimulating Hormone (TSH) 4.550 uIu/ml (0.300-4.500) Free Thyroxine 0.94 ng/dl (0.80-1.60) Chemistry Specimen Hemolysis Urine Color YELLOW Urine Appearance CLEAR (CLEAR) Urine pH 6.0 (4.5-7.5) Urine Specific Henderson 1.027 (1.000-1.030) Urine Protein NEG (NEG) Urine Glucose (UA) NEG (NEG) Urine Ketones NEG (NEG) Urine Occult Blood NEG (NEG) Urine Nitrite NEG (NEG) Urine Bilirubin NEG (NEG) Urine Urobilinogen NEG (NEG) Urine Leukocyte Esterase NEG (NEG) Laboratory results reviewed by me. Medications Administered Medications (Trade) Dose Ordered Sig/Dora Route Start Time Stop Time Status Last Admin Dose Admin Ondansetron HCl (Zofran Inj) 4 mg NOW STAT IV 07/30/17 21:17 07/30/17 21:20 DC 07/30/17 21:30 4 MG Morphine Sulfate (MoRPHine SULFATE INJ) 2 mg Q30M PRN IV 07/30/17 21:30 08/13/17 21:29 07/30/17 21:30 2 MG Albuterol/ Ipratropium (Duoneb) 3 ml NOW STAT INH 07/30/17 21:21 07/30/17 21:22 DC 07/30/17 21:30 3 ML ECG Per My Interpretation Indication: back/shoulder pain Rate (beats per minute): 58 Rhythm: sinus bradycardia Findings: other (No ST elevation, no PAC, no PVC.) ED Course 2110: The patient was evaluated in room A3. A complete history and physical exam was performed. 2116: Zofran 4mg IV 2120: DuoNeb 3ml INH 2129: Morphine Sulfate 2mg IV 2236: I reevaluated the patient, and I discussed getting a CT scan with her. 2319: Reevaluated the patient, and she and her family would like the patient to go home. Discussed results and discharge instructions: they verbalized understanding and agreement. The patient is ready for discharge. Medical Decision Differential diagnoses include: intracranial bleeding, cervical spine fracture, clavicle fracture, shoulder fracture, shoulder dislocation, rib injury, UTI, anemia, and electrolyte imbalance. There is no leukocytosis or worrisome anemia. No significant electrolyte abnormality, kidney failure or hepatitis. Thyroid testing suggests the use of thyroid medications. Urinalysis does not show infection. Chest film does not show pneumonia or CHF. Brain CT shows no acute bleed or mass effect. C-spine CT shows no acute fracture. Left shoulder and left humerus films were done, there was no shoulder dislocation. A questionable cortical fracture to the humeral head was noted. Upper extremity CT shows evidence for a cortical fracture to the humeral head. No bony dislocation. The patient was given IV morphine, IV Zofran and oral Tylenol. She was placed in a left arm sling. She received a DuoNeb as she was due for a breathing treatment. The patient is resting comfortably. I talked to her and her grandson about going home versus going to rehabilitation. They do feel comfortable with discharge home. The patient will contact orthopedics tomorrow for follow-up. Tylenol and ice for pain and inflammation, the sling for comfort. If things are worsening, she should return. This fall sounds mechanical. She was encouraged to have more help with getting around in the house, her walker or wheelchair were encouraged. Medication Reconcilliation Current Medication List: was personally reviewed by me Blood Pressure Screening Patient's blood pressure: Elevated blood pressure Blood pressure disposition: Referred to PCP Impression Primary Impression: Fracture of humeral head, left, closed Additional Impressions: Neck pain Fall Scribe Attestation The scribe's documentation has been prepared under my direction and personally reviewed by me in its entirety. I confirm that the note above accurately reflects all work, treatment, procedures, and medical decision making performed by me. Departure Information Dispostion Home / Self-Care Prescriptions Acetaminophen (Tylenol Extra Strength) 500 Mg Tab 2 TAB PO Q8 Y for Pain, #30 TABS 2 Refills Prov: Roberto Rahman M.D. 07/30/17 Referrals Gayle Moreno M.D. (PCP) Forms HOME CARE DOCUMENTATION FORM, IMPORTANT VISIT INFORMATION Patient Instructions My [facility] Additional Instructions ice to the shoulder may help--30 minutes at a time call orthopedics tomorrow for an appt for the fracture wear the sling for confort and to help with healing tylenol for pain--1 gram every 8 hours as needed return for worsening symptoms Problem Qualifiers
--- NOTE | 2017-07-30 21:58 | DIAGNOSTIC IMAGING REPORT ---
CT OF THE HEAD WITHOUT CONTRAST CLINICAL HISTORY: Fall. Altered mental status. COMPARISON STUDY: Head CT and CTA of the head April 09, 2017. CT DOSE: 1605.36 mGy.cm TECHNIQUE: Helical axial images of the head were obtained without IV contrast. Automated exposure control was utilized for the study. A dose lowering technique was utilized adhering to the principles of ALARA. FINDINGS: Lumber Press Operator tomogram demonstrates a possible nondisplaced distal right clavicular fracture. Study is mildly compromised by motion artifact. No acute intracranial hemorrhage, midline shift or mass effect is present. Old right frontal lobe infarcts are noted. White matter hypodensity is consistent with small vessel disease. This is unchanged. There are no findings to suggest acute dural sinus thrombosis or acute territorial infarct. Basilar cisterns are patent. There are no extra axial collections. Sensitivity for detection of nondisplaced calvarial fractures is diminished but none are identified. IMPRESSION: 1. No acute intracranial findings. 2. Study mildly compromised by motion artifact. No displaced calvarial fractures. 3. Possible acute nondisplaced distal right clavicular fracture. Electronically signed by: Nito Hinojosa M.D. 07/30/2017 9:57 PM Dictated Date/Time: 07/30/2017 9:52 PM
--- NOTE | 2017-07-30 22:02 | DIAGNOSTIC IMAGING REPORT ---
CT OF THE CERVICAL SPINE WITHOUT CONTRAST CLINICAL HISTORY: Fall. Pain. COMPARISON STUDY: Cervical spine CT August 31, 2014. TECHNIQUE: Helical axial images of the cervical spine were obtained without IV contrast. Sagittal and coronal reconstructions were viewed. A dose lowering technique was utilized adhering to the principles of ALARA. FINDINGS: Craniocervical junction is intact. Alignment of the cervical spine is anatomic. There is no acute cervical spine fracture. There is no prevertebral edema. Moderate multilevel degenerative disc disease and facet arthrosis within the cervical spine is noted. IMPRESSION: No acute cervical spine fracture or subluxation. Electronically signed by: Nito Hinojosa M.D. 07/30/2017 10:01 PM Dictated Date/Time: 07/30/2017 9:57 PM
[2017-07-30 22:17] LABS: ALBUMIN 3.3 gm/dl (3.4-5.0); CALCIUM 8.9 mg/dl (8.5-10.1); CREATININE 0.85 mg/dl (0.60-1.20); POTASSIUM 4.3 mmol/L (3.5-5.1); TOTAL PROTEIN 6.8 gm/dl (6.4-8.2)
--- NOTE | 2017-07-30 22:19 | DIAGNOSTIC IMAGING REPORT ---
CHEST ONE VIEW PORTABLE CLINICAL HISTORY: EVALUATE ALTERED MENTAL STATUS/WEAKNESS COMPARISON STUDY: Chest radiograph April 11, 2017. FINDINGS: There is no pneumothorax or pleural effusion. Lung volumes are mildly diminished. Cardiomediastinal silhouette is stable and there is no evidence for pulmonary edema. Mild right lower lung opacity is unchanged and favors atelectasis. IMPRESSION: No acute cardiopulmonary findings. Electronically signed by: Nito Hinojosa M.D. 07/30/2017 10:18 PM Dictated Date/Time: 07/30/2017 10:15 PM
--- NOTE | 2017-07-30 22:23 | DIAGNOSTIC IMAGING REPORT ---
L SHOULDER MIN 2 VIEWS ROUTINE CLINICAL HISTORY: Left shoulder pain following fall. COMPARISON: None FINDINGS: Alignment of the left shoulder is anatomic. No definite fracture is identified. There is subtle cortical irregularity of the superolateral aspect of the left humeral head. IMPRESSION: Subtle cortical irregularity of the superolateral aspect of the left humeral head. This may reflect a nondisplaced fracture. Electronically signed by: Nito Hinojosa M.D. 07/30/2017 10:22 PM Dictated Date/Time: 07/30/2017 10:18 PM
--- NOTE | 2017-07-30 22:25 | DIAGNOSTIC IMAGING REPORT ---
L HUMERUS MIN 2 VIEWS ROUTINE CLINICAL HISTORY: fall, pain COMPARISON: None FINDINGS: Possible nondisplaced fracture of the left humeral head is better depicted on the left shoulder radiographs. There is no definite acute fracture of the left humerus. Alignment of the left glenohumeral joint appears anatomic. IMPRESSION: No definite acute left humeral fracture. The possible acute nondisplaced left humeral head fracture is better depicted on the left shoulder radiographs. Electronically signed by: Nito Hinojosa M.D. 07/30/2017 10:24 PM Dictated Date/Time: 07/30/2017 10:22 PM
--- NOTE | 2017-07-30 23:14 | DIAGNOSTIC IMAGING REPORT ---
CT OF THE LEFT SHOULDER WITHOUT CONTRAST CLINICAL HISTORY: Left shoulder pain following fall. COMPARISON STUDY: Left shoulder and humerus radiograph performed earlier today. TECHNIQUE: Axial images of the left shoulder were obtained without IV contrast. Sagittal and coronal reconstructions were viewed. FINDINGS: Alignment of the left glenohumeral and acromioclavicular joints is anatomic. There is a left shoulder joint effusion with lipohemarthrosis which suggests an acute intra-articular fracture. No definite acute proximal left humeral fracture is identified. There is subtle cortical irregularity of the posterior superior aspect of the left humeral head. This is equivocal for an acute nondisplaced fracture. There is no acute fracture of the left glenoid. No acute left-sided rib fractures are identified. There is no left pneumothorax. IMPRESSION: Left shoulder joint effusion with lipohemarthrosis which suggests an acute intra-articular fracture. No definite acute fracture identified. Subtle cortical irregularity of the posterior superior aspect of the left humeral head could reflect an acute nondisplaced fracture. Electronically signed by: Nito Hinojosa M.D. 07/30/2017 11:13 PM Dictated Date/Time: 07/30/2017 10:58 PM
[2017-07-30] MEDS ORDERED: ACET-1138 PO (23:29)
[2017-07-30] MEDS ORDERED: ACETAMINOPHEN 500 MG TAB PO STA (23:41)
[2017-07-30 23:59] VITALS: BP 134/86; PULSE 81; O2SAT 94
== END 2017-07-31 00:01 | disposition home or self-care (01) ==
LOC: EDBD 20:46 → C.EDA 20:50
DX: S42.202A Unspecified fracture of upper end of left humerus, initial encounter for closed fracture (principal); M54.2 Cervicalgia; W19.XXXA Unspecified fall, initial encounter; I67.1 Cerebral aneurysm, nonruptured; J44.9 Chronic obstructive pulmonary disease, unspecified; F03.90 Unspecified dementia, unspecified severity, without behavioral disturbance, psychotic disturbance, mood disturbance, and anxiety; G40.909 Epilepsy, unspecified, not intractable, without status epilepticus; E03.9 Hypothyroidism, unspecified; Z86.73 Personal history of transient ischemic attack (TIA), and cerebral infarction without residual deficits; Z87.891 Personal history of nicotine dependence; Z82.3 Family history of stroke; Z88.5 Allergy status to narcotic agent; Z88.8 Allergy status to other drugs, medicaments and biological substances

== ENCOUNTER 2017-09-02 23:19 | Emergency (ER) | payer OTHER ==
[~2017-09-02 23:19] MED LIST changes: +ACET-1138 PO; -AMOX1TAB43 PO; -CITA10TA4 PO; +CLX/20 PO
[2017-09-02 23:27] VITALS: TEMP 37.3
[2017-09-02] MEDS ORDERED: HYDROCODONE/ACETAMIN 5/325MG TAB PO STA (23:32)
[2017-09-03] MEDS ORDERED: PROPRANOLOL HCL 10 MG TAB PO ONE ×2 (00:45)
[2017-09-03] MEDS ORDERED: NORCO 5/325MG HOME PACK PO ONE (00:45)
[2017-09-03] MEDS ORDERED: EMPTY 8 DRAM VIAL ONE (00:48)
[2017-09-03] MEDS ORDERED: HYDR-5688 PO (01:32)
[2017-09-03 02:03] VITALS: BP 152/99; PULSE 98; O2SAT 95
--- NOTE | 2017-09-03 03:12 | EMERGENCY ROOM VISIT NOTE ---
History Report prepared by Jessica: Abena Bridges Under the Supervision of: Dr. Jack Arboleda M.D. First contact with patient: 23:20 Chief Complaint: FALL Stated Complaint: FALL/SHOULDER PAIN History of Present Illness The patient is a 77 year old female who presents to the Emergency Room with complaints of persistent left arm pain starting 6 hours ago. She presents to the ED by EMS. The patient fell around 1700 today. She is unsure why she fell. She injured her left arm in the fall. She previously injured her left arm last month. The pain is closer to her left elbow this time. She denies any other injury. She has been at baseline recently per her grandson. Pt denies LOC, headache, fevers, chills, diaphoresis, visual changes, neck pain, chest pain, breathing difficulties, nausea, vomiting, abdominal pain, back pain, melena, hematochezia, urinary symptoms, numbness, weakness, lymphadenopathy, rash, or other complaints. Source of History: patient, family, EMS Onset: 6 hours ago Position: arm (left) Quality: other (injury pain) Timing: other (persistent) Associated Symptoms: No back pain Review of Systems See HPI for pertinent positives and negatives. A total of ten systems were reviewed and were otherwise negative. Past Medical & Surgical Medical Problems: (1) Cerebral aneurysm, nonruptured (2) COPD (chronic obstructive pulmonary disease) (3) Dementia (4) Epilepsy (5) Hypothyroidism (6) Intraparenchymal hemorrhage of brain (7) Osteoporosis (8) Subarachnoid hemorrhage (9) TIA (transient ischemic attack) Surgical Problems: (1) H/O thyroidectomy (2) History of hysterectomy Family History FH: breast cancer MOTHER Stroke SISTER Social History Smoking Status: Unknown if Ever Smoked Alcohol Use: none Housing Status: lives with family Current/Historical Medications Scheduled Citalopram (Citalopram Hydrobromide), 20 MG PO HS Levetiractam (Levetiracetam), 1,000 MG PO BID Levothyroxine Sodium (Levothyroxine Sodium), 50 MCG PO DAILY Propranolol (Inderal), 10 MG PO BID Rivastigmine Tartrate (Exelon), 3 MG PO BID Scheduled PRN Acetaminophen (Tylenol Extra Strength), 2 TAB PO Q8 PRN for Pain Fluticasone Prop/Salmeterol (Advair Diskus 250/50 60 Dose), 1 PUFF INH BID PRN for Shortness of Breath Hydrocodone/Acetaminophen 5MG/325MG ([place] 5MG/325MG), 1 TABS PO Q6H PRN for Pain Ipratropium-Albuterol (Duoneb), 1 TREATMENT INH QID PRN for SOB/Wheezing Allergies Coded Allergies: Sulfa Drugs (Verified Allergy, Intermediate, headache, 07/30/17) Codeine (Verified Allergy, Mild, vomiting, 07/30/17) Tramadol (Verified Adverse Reaction, Unknown, CAN NOT HAVE DUE TO RISK OF SEIZURES, 07/30/17) Physical Exam Vital Signs Date Time Temp Pulse Resp B/P (MAP) Pulse Ox O2 Delivery O2 Flow Rate FiO2 09/03/17 02:03 98 19 152/99 95 09/03/17 01:00 92 20 159/81 95 Room Air 09/03/17 00:01 98 18 181/121 95 Room Air 09/02/17 23:27 37.3 105 20 200/107 95 Room Air Physical Exam GENERAL: Awake, alert, well-appearing, in no distress HENT: Normocephalic, atraumatic. Oropharynx unremarkable. EYES: Normal conjunctiva. Sclera non-icteric. NECK: Supple. No nuchal rigidity. FROM. No masses. RESPIRATORY: Clear to auscultation. No wheezes. No rales. Normal respiratory effort. CARDIAC: Normal rate. Normal rhythm. No murmurs. No rubs. Extremities warm and well perfused. Pulses equal. No JVD. GI: Soft, non-distended. No tenderness to palpation. No rebound or guarding. No masses. RECTAL: Deferred. MUSCULOSKELETAL: Atraumatic. Chest examination reveals no tenderness. The back is symmetrical on inspection without obvious abnormality. There is no CVA tenderness to palpation. No joint edema. Tenderness to the left humerus from the elbow up to the mid shaft. LOWER EXTREMITIES: Calves are equal size bilaterally and non-tender. No edema. No discoloration. NEURO: Normal sensorium. No sensory or motor deficits noted. SKIN: No rash or jaundice noted. Medical Decision & Procedures ER Provider Diagnostic Interpretation: X-ray: Per my interpretation, radiologist review. Left humerus X-ray, left shoulder X-ray: Cortical irregularity of the left humeral head, no evidence of dislocation. Cortical irregularity concerning for fracture. When compared to prior imaging from Jul 30, it is more pronounced. Medications Administered Medications (Trade) Dose Ordered Sig/Dora Route Start Time Stop Time Status Last Admin Dose Admin Acetaminophen/ Hydrocodone Bitart ([place] 5/325 Tab) 1 tab NOW STAT PO 09/02/17 23:32 09/02/17 23:36 DC 09/03/17 00:01 1 TAB Propranolol HCl (Inderal Tab) 10 mg NOW ONCE PO 09/03/17 00:45 09/03/17 00:46 DC 09/03/17 00:55 10 MG Propranolol HCl (Inderal Tab) 10 mg NOW ONCE PO 09/03/17 00:45 09/03/17 00:46 DC 09/03/17 00:55 10 MG Acetaminophen/ Hydrocodone Bitart ([place] 5/325mg Home Pack) 1 homepack UD ONCE PO 09/03/17 00:45 09/03/17 00:46 DC 09/03/17 00:55 1 HOMEPACK ED Course 2321: The patient was evaluated in room B2. A complete history and physical exam was performed. 2332: [place] 5/325 1 tab PO. 0033: I reevaluated the patient. She is feeling better. I discussed results. I discussed ortho follow up. Case management will speak with the patient about services. 0045: [place] 5/325 mg 1 homepack, Inderal Tab 10 mg PO, Inderal Tab 10 mg PO. 0125: The patient has been seen by case management. She was discharged home. Medical Decision Prior records reviewed. The patient was here on the and had a x-ray and shoulder CT scan performed which suggested a intra-articular fracture of the left humeral head. Triage Nursing notes reviewed and agree them. Additional history obtained from family. The patient's history was concerning for traumatic injury. Differential diagnosis: Etiologies such as fracture, dislocation, neurovascular compromise, compartment syndrome, soft tissue injury, as well as others were entertained. Physical examination: Consistent with an isolated left upper arm injury. ER treatment provided: Sling Ice pack Oral [place] On reassessment the patient felt much better. The patient was given a dose of her home propanolol 10 mg. She was also given a 10 mg dose for the morning. Diagnostics interpreted by me: Imaging studies: Xrays as above. The patient has dementia. She reportedly was at baseline per family. The patient feels well. She apparently lost her balance and fell onto her injured arm. X-ray imaging shows some cortical displacement of humeral head but no significant fracture or dislocation. This is in the area of her pain. The remainder of her humerus appears to be unremarkable. By the evaluation outlined above emergent etiologies such as open fracture, dislocation, neurovascular compromise, compartment syndrome, infections, as well as others were deemed relatively unlikely. The patient and family were informed about the findings as listed above. All questions were answered and they were pleased with the treatment. Return instructions were outlined and the patient was discharged in stable condition. Prescription management: [place] Referral: The patient will follow up with her primary care physician. Family requested follow-up with the orthopedics locally. I am unsure of any options in their town near [place]. They will discuss referral to [facility] orthopedics and [facility] but if this is not available then they will follow-up with [facility]. [place] Drug Monitoring Program Search Results: patient reviewed within database, no issues identified Medication Reconcilliation Current Medication List: was personally reviewed by me Blood Pressure Screening Patient's blood pressure: Elevated blood pressure Blood pressure disposition: Referred to PCP Impression Primary Impression: Fall Additional Impression: Fracture of head of left humerus Scribe Attestation The scribe's documentation has been prepared under my direction and personally reviewed by me in its entirety. I confirm that the note above accurately reflects all work, treatment, procedures, and medical decision making performed by me. Departure Information Dispostion Home / Self-Care Prescriptions Hydrocodone/Acetaminophen 5MG/325MG ([place] 5MG/325MG) Tab 1 TABS PO Q6H Y for Pain, #12 TAB Prov: Jack Arboleda MD 09/03/17 Referrals Gayle Moreno M.D. (PCP) Forms HOME CARE DOCUMENTATION FORM, IMPORTANT VISIT INFORMATION Patient Instructions My [facility] Additional Instructions ORTHOPEDIC INSTRUCTIONS: DO NOT drive, drink alcohol, operate machinery, or perform dangerous activities today. You were given medications in the ER that can affect your ability to safely function or operate a vehicle. Hydrocodone/acetaminophen 5/325mg: Take 1 pill every 6 hours as needed for pain. Avoid additional Acetaminophen/Tylenol, alcohol, operating machinery or dangerous equipment, working on ladders or roofs, DRIVING, or situations where being under the influence may be dangerous. It is recommended to use a stool softener such as Colace, 100mg twice daily while taking this medication to avoid constipation. Ice compresses for 20 minutes at a time four times daily for 2-3 days. Use the sling as instructed. Rest and elevate your injury. Continue current medication. Return to the ER immediately for any headache, chest pain, difficulty breathing , additional falls, numbness, tingling, severe pain, extreme swelling in the extremity or as needed. Follow-up with your primary care physician tomorrow for a recheck of your current condition regarding the fall and arm injury but also your elevated blood pressure. Discussed referral to [facility] orthopedics. If this is not available Call [facility], [phone], tomorrow to arrange follow up for your injury. Follow-up with elderly services as discussed by case management. Problem Qualifiers
--- NOTE | 2017-09-03 07:33 | DIAGNOSTIC IMAGING REPORT ---
LEFT SHOULDER 2 VIEWS; LEFT HUMERUS 2 VIEWS CLINICAL HISTORY: Fall with left arm pain. FINDINGS: 2 views of the left shoulder with AP and lateral views of the left humerus are correlated with shoulder radiographs dated 07/30/2017. The skeletal structures are osteopenic. There is a minimally impacted nondistracted fracture of the left humeral head. The remainder of the humerus appears intact. No additional fracture is identified. The glenohumeral articulation is preserved. The acromioclavicular joint is normal. The elbow joint is grossly maintained. The overlying soft tissues are within normal limits. Partially imaged left lung parenchyma appears clear. Atherosclerotic calcification is noted in the thoracic aorta. IMPRESSION: 1. Impacted and nondistracted fracture of the left humeral head. 2. No additional fracture is identified Electronically signed by: Roberto Clark M.D. 09/03/2017 7:32 AM Dictated Date/Time: 09/03/2017 7:29 AM
== END 2017-09-03 02:05 | disposition home or self-care (01) ==
LOC: EDBD 23:19 → C.EDB 23:20
DX: S42.292A Other displaced fracture of upper end of left humerus, initial encounter for closed fracture (principal); W19.XXXA Unspecified fall, initial encounter; R03.0 Elevated blood-pressure reading, without diagnosis of hypertension; J44.9 Chronic obstructive pulmonary disease, unspecified; F03.90 Unspecified dementia, unspecified severity, without behavioral disturbance, psychotic disturbance, mood disturbance, and anxiety; E03.9 Hypothyroidism, unspecified; M81.0 Age-related osteoporosis without current pathological fracture; Z88.2 Allergy status to sulfonamides; Z88.6 Allergy status to analgesic agent; Z83.0 Family history of human immunodeficiency virus [HIV] disease; Z82.3 Family history of stroke

== ENCOUNTER 2018-08-10 18:13 | Inpatient (IN) ==
--- NOTE | 2018-08-10 18:26 | Emergency Department Note ---
Entered by Demond Turner acting as a scribe for Cameron Stover DO History of Present Illness General Chief complaint: Illness Stated complaint: LETHARGIC Source: family History of Present Illness Onset (ago): minute(s) (prior to arrival) Location: head (global) Pain Consistency: + other (currently improved) Quality: + other (lethargy) Associated symptoms: + other (was very difficult to wake her up prior to arrival; denies vomiting) The patient is a 78 year old female who presents to the Emergency Room via EMS with currently improved lethargy beginning prior to arrival. The grandson reports that the patient�s cousin was with the patient when it was noticed that it was very difficult to wake her while sleeping in a chair, and the cousin called 911. The grandson reports that the patient currently appears at baseline, stating that she normally does not talk much and is able to follow commands. He states that the patient normally feeds herself, but he helps her walk and bathe herself. He notes that the patient has not vomited, and he states that he ate some of her lunch. He reports that the patient had a stroke two years ago. Home Medications Home Medications Medication Instructions Recorded Confirmed Type acetaminophen [Tylenol Extra 1,000 mg PO Q8H PRN 02/13/18 08/10/18 History Strength] fluticasone-salmeterol [Advair 1 inh INHALATION BID 02/13/18 08/10/18 History Diskus] ipratropium-albuterol 3 ml INHALATION QID PRN 02/13/18 08/10/18 History levothyroxine 50 mcg PO DAILY 02/13/18 08/10/18 History rivastigmine tartrate 3 mg PO BID 02/13/18 08/10/18 History aspirin [Aspir-81] 81 mg PO DAILY 08/10/18 08/10/18 History atorvastatin [Lipitor] 40 mg PO QPM 08/10/18 08/10/18 History citalopram [Celexa] 40 mg PO DAILY 08/10/18 08/10/18 History docusate sodium [Colace] 100 mg PO BID 08/10/18 08/10/18 History levetiracetam [Keppra] 10 ml PO BID 08/10/18 08/10/18 History metoprolol tartrate 25 mg PO BID 08/10/18 08/10/18 History ramipril [Altace] 5 mg PO DAILY 08/10/18 08/10/18 History ticagrelor [Brilinta] 90 mg PO BID 08/10/18 08/10/18 History Allergies Allergy/AdvReac Type Severity Reaction Status Date / Time Sulfa (Sulfonamide Allergy Intermediate headache Verified 08/10/18 19:03 Antibiotics) codeine Allergy Mild vomiting Verified 08/10/18 19:03 tramadol AdvReac Unknown CAN NOT Verified 08/10/18 19:03 HAVE DUE TO RISK OF SEIZURES Past Med/Surg History Medical History Chronic headache CKD (chronic kidney disease) stage 3, GFR 30-59 ml/min Vascular dementia Osteoporosis (Chronic) Epilepsy (Chronic) Hypothyroidism (Chronic) s/p thyroidectomy Dementia (Chronic) COPD (chronic obstructive pulmonary disease) (Chronic) Cerebral aneurysm, nonruptured Subarachnoid hemorrhage TIA (transient ischemic attack) Surgical History History of hysterectomy (Chronic) H/O thyroidectomy (Chronic) Family History Mother Cancer Father Liver disease Social History Communication Ability: Unable Beliefs That Will Affect Care: None Current Living Situation: Family Feels Safe at Home: Yes Smoking Status: Unknown if ever smoked Hx Alcohol Use: No Hx Substance Use: No Review of Systems See HPI for pertinent positives & negatives. and A total of 10 systems reviewed and were otherwise negative Physical Exam Vital Signs Vital Signs - 24 hr 08/10/18 18:18 08/10/18 19:06 08/10/18 19:12 Temperature 36.7 C Temperature Source Oral Sepsis Recent Fever Within 48 Hours No Sepsis New/Unexplained Change in Mental Status No Sepsis Action Taken by Nursing No Action Required Pulse Rate 79 65 61 Pulse Rate [Apical] Pulse Rate from SpO2 Sensor 61 61 Pulse Rhythm Regular Pulse Strength Normal Respiratory Rate 18 18 19 Respiratory Effort / Characteristics Non-Labored Respiratory Depth Normal Respiratory Pattern Regular Blood Pressure 145/67 H 144/64 H Blood Pressure [Right Arm] Blood Pressure Mean 93 90 Blood Pressure Mean [Right Arm] Pulse Oximetry 100 96 96 Oxygen Delivery Method Room Air 08/10/18 19:30 08/10/18 20:00 08/10/18 20:30 Temperature Temperature Source Sepsis Recent Fever Within 48 Hours Sepsis New/Unexplained Change in Mental Status Sepsis Action Taken by Nursing Pulse Rate 61 62 63 Pulse Rate [Apical] Pulse Rate from SpO2 Sensor 61 66 63 Pulse Rhythm Pulse Strength Respiratory Rate 27 H 21 22 Respiratory Effort / Characteristics Respiratory Depth Respiratory Pattern Blood Pressure Blood Pressure [Right Arm] Blood Pressure Mean Blood Pressure Mean [Right Arm] Pulse Oximetry 92 97 95 Oxygen Delivery Method 08/10/18 21:00 08/10/18 21:31 08/10/18 21:33 Temperature Temperature Source Sepsis Recent Fever Within 48 Hours Sepsis New/Unexplained Change in Mental Status Sepsis Action Taken by Nursing Pulse Rate 72 80 83 Pulse Rate [Apical] 83 Pulse Rate from SpO2 Sensor 70 83 Pulse Rhythm Pulse Strength Respiratory Rate 24 22 24 Respiratory Effort / Characteristics Respiratory Depth Respiratory Pattern Blood Pressure 164/111 H Blood Pressure [Right Arm] 164/111 H Blood Pressure Mean 128 Blood Pressure Mean [Right Arm] 128 Pulse Oximetry 96 96 Oxygen Delivery Method Room Air GENERAL: Patient is awake and looking around the room. She responds to verbal commands slowly. She does not appear to be anxious or in pain. EYES: The conjunctivae are clear. The pupils are round and reactive. EARS, NOSE, MOUTH AND THROAT: The nose is without any evidence of any deformity. Mucous membranes are moist tongue is midline NECK: The neck is nontender and supple. RESPIRATORY: Normal respiratory effort is noted there is no evidence of wheezing rhonchi or rales CARDIOVASCULAR: Regular rate and rhythm noted there no murmurs rubs or gallops normal S1 normal S2 GASTROINTESTINAL: The abdomen is soft. Bowel sounds are present in all quadrants. Abdomen is nontender MUSCULOSKELETAL/EXTREMITIES: There is no evidence of gross deformity full range of motion is noted in the hips and shoulders SKIN: There is no obvious evidence of any rash. Pedal edema was noted bilaterally. NEUROLOGIC: Patient patient appears to be at her baseline according to her son. Patellar tendon reflexes were 2+ bilaterally. Strength was symmetric but diminished bilaterally. No facial droop was noted. Course 1816: Past medical records reviewed. The patient was evaluated in room C4, and a complete history and physical examination were performed. 2056: I updated the patient and family on results. 2313: I consulted Dr. Britta Doe Hospitalist. He will reevaluate the patient for hospitalization. Consultations Consultation #1: I consulted Dr. Britta Doe Hospitalist. He will reevaluate the patient for hospitalization. Time: 23:13 Administered Medications Ioversol (Optiray 320 125ml) 119 ml IV ONCE PRN PRN Reason: Interaction Checking Stop: 08/14/18 21:25 Last Admin: 08/10/18 21:28 Dose: 119 ml Documented by: [id number] Discontinued Medications Sodium Chloride (Nss) 500 mls @ 999 mls/hr IV .Q31M AKHIL Stop: 08/10/18 19:00 Last Infusion: 08/10/18 19:57 Dose: 0 mls/hr Documented by: [id number] Admin: 08/10/18 18:47 Dose: 999 mls/hr Documented by: [id number] Sodium Chloride (Nss 1000ml) 500 mls @ 999 mls/hr IV .Q31M ONE Stop: 08/10/18 23:02 Last Admin: 08/10/18 22:41 Dose: 999 mls/hr Documented by: [id number] Medical Decision Making Differential Diagnosis Differential diagnosis: Etiologies such as metabolic, infection, hypoglycemia, electrolyte abnormalities, cardiac sources, intracerebral event, toxicologic, neurologic, as well as others were entertained. Medical Records Attestation: I reviewed the patient's medical records. Home Medications Current Medication List: was personally reviewed by me Laboratory Data Attestation: I reviewed the patient's lab results. Result diagrams: 08/10/18 19:36 08/10/18 19:36 Lab Results 08/10/18 08/10/18 08/10/18 Range/Units 19:36 19:36 19:36 WBC 8.53 (4.8-10.8) K/uL RBC 3.90 L (4.2-5.4) M/uL Hgb 11.7 L (12.0-16.0) g/dL Hct 36.0 L (37-47) % MCV 92.3 (80-100) fL MCH 30.0 (25-34) pg MCHC 32.5 (32-36) g/dL RDW Std Deviation 50.2 H (36.4-46.3) fL RDW Coeff of Monica 14.7 H (11.5-14.5) % Plt Count 349 (130-400) K/uL MPV 10.2 (7.4-10.4) fL Immature Gran % (Auto) 0.1 % Neut % (Auto) 58.9 % Lymph % (Auto) 30.5 % Valencia % (Auto) 6.9 % Eos % (Auto) 3.2 % Baso % (Auto) 0.4 % Immature Gran # (Auto) 0.01 (0.00-0.02) K/uL Neut # (Auto) 5.03 (1.4-6.5) K/uL Lymph # (Auto) 2.60 (1.2-3.4) K/uL Valencia # (Auto) 0.59 (0.11-0.59) K/uL Eos # (Auto) 0.27 (0-0.5) K/uL Baso # (Auto) 0.03 (0-0.2) K/uL PT 11.3 (9.0-12.0) Seconds INR 1.1 (0.9-1.1) Sodium 139 (136-145) mmol/L Potassium 4.2 (3.5-5.1) mmol/L Chloride 111 H (98-107) mmol/L Carbon Dioxide 22 (21-32) mmol/L Anion Gap 6.0 (3-11) BUN 16 (7-18) mg/dl Creatinine 0.81 (0.6-1.2) mg/dl Est Cr Clr Drug Dosing 63.1 ml/min Est GFR ( Amer) 81.8 Est GFR (Non-Af Amer) 70.5 BUN/Creatinine Ratio 19.6 (10-20) Glucose 102 H (70-99) mg/dl Calcium 8.2 L (8.5-10.1) mg/dl Magnesium 2.0 (1.8-2.4) mg/dl Total Bilirubin 0.3 (0.2-1) mg/dl AST 22 (15-37) U/L ALT 28 (12-78) U/L Alkaline Phosphatase 186 H (45-117) U/L Total Creatine Kinase 64 (26-192) U/L Troponin I 0.038 (0-0.045) ng/ml Total Protein 6.4 (6.4-8.2) gm/dl Albumin 2.7 L (3.4-5.0) gm/dl Globulin 3.7 (2.5-4.0) gm/dl Albumin/Globulin Ratio 0.7 L (0.9-2) TSH 0.097 L (0.300-4.500) uIu/ml Free T4 1.56 (0.8-1.6) ng/dl Imaging Data Radiologist's Impression: Radiology results as stated below per my review and the radiologist's interpretation: CT ANGIOGRAM OF THE CHEST CLINICAL HISTORY: Generalized weakness. COMPARISON STUDY: Chest x-ray dated 08/10/2018. TECHNIQUE: Following the IV administration of 119 cc of Optiray 320, CT angiogram of the chest was performed from the upper abdomen to the thoracic inlet utilizing the pulmonary embolus protocol. Images are reviewed in the axial, sagittal, and coronal planes. 3-D MIPS images are created and assessed. IV contrast was administered without complication. A dose lowering technique was utilized adhering to the principles of ALARA. The examination is degraded by motion artifact, as well as by streak artifact from the arms which could not be elevated above the chest. CT DOSE: 553.53 mGy.cm FINDINGS: Thyroid: Imaged portions of the thyroid gland are normal in size and attenuation. Thoracic aorta: There is atherosclerotic calcification of the thoracic aorta, which is normal in caliber and demonstrates standard 3-vessel arch anatomy. No dissection is seen, although the thoracic aorta is suboptimally opacified. 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 Pulmonary vasculature: The pulmonary trunk is normal in caliber. There are no filling defects identified in main, lobar, or proximal segmental pulmonary branches to suggest pulmonary embolus. Evaluation of the peripheral branches is degraded by motion artifact. Heart: The heart is mildly enlarged and without pericardial effusion. The coronary arteries and mitral annulus are densely calcified. Lungs and pleural spaces: Evaluation of the lung parenchyma is significantly degraded by motion artifact. Note that this degrades assessment for small pulmonary lesions. Emphysematous change is noted. The trachea is clear. Secretions are noted in the right mainstem bronchus. No airspace consolidation or pleural effusion is identified. Foci of scarring/atelectasis are noted at the lung bases, and there is mild elevation of left hemidiaphragm. Mediastinum: There is no mediastinal lymphadenopathy. Rebecca: Clear. Axillae: There is no axillary lymphadenopathy. Upper abdomen: Partially visualized upper abdominal viscera is within normal limits. Skeletal structures: The skeletal structures are osteopenic. Degenerative change and hyperkyphosis are noted in the thoracic spine. No lytic or blastic bony lesions are seen. IMPRESSION: 1. Streak and motion compromised examination. 2. There is no evidence of pulmonary embolus in the main, lobar, or proximal segmental pulmonary arteries. Evaluation of the peripheral branches is degraded by motion artifact. 3. Cardiomegaly and emphysema. 4. No airspace consolidation or pleural effusion is identified. 5. 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 6. Additional findings as above. Electronically signed by: Roberto Clark M.D. 08/10/2018 9:40 PM SINGLE VIEW CHEST CLINICAL HISTORY: Generalized weakness. FINDINGS: An AP, portable, upright chest radiograph is compared to study dated 02/13/2018. The examination is degraded by portable technique and patient rotation. The cardiomediastinal silhouette is unremarkable comment noting atherosclerotic calcification of the thoracic aorta. There is bibasilar scarring/atelectasis. No airspace consolidation or large pleural effusion is identified. Chronic interstitial thickening is similar to previous. No pneumothorax is seen. The skeletal structures are osteopenic. The bony thorax is grossly intact. IMPRESSION: No active disease in the chest. Electronically signed by: Roberto Clark M.D. 08/10/2018 7:[address] head/brain wo con CLINICAL HISTORY: 78 years-old Female presenting with altered MS. TECHNIQUE: Multidetector CT imaging of the head was performed without the use of intravenous contrast. IV contrast: None. One or more dose lowering techniques were used consistent with the principles of ALARA (as low as reasonably achievable), including automatic exposure control, mA or kV adjustment to individual patient size, and/or use of iterative reconstruction. COMPARISON: 02/13/2018. CT DOSE (mGy.cm): The estimated cumulative dose is 537.48 mGy.cm. FINDINGS: Body And Frame Man topogram: The patient is edentulous. Proportional ventricular and sulcal prominence, likely age-related parenchymal volume loss. No hemorrhage. Periventricular and subcortical white matter hypoattenuation, nonspecific but likely indicative of chronic small vessel ischemic change. Old infarcts in the right frontal lobe both inferiorly and superiorly. No acute territorial infarct. No mass effect or midline shift. No extra-axial fluid collection. Paranasal sinuses and mastoid air cells clear. Calvarium intact. Gas is noted posterior to the left globe (series 2 image 11). This is most likely intravascular related to the presence of a presumed intravenous line. Gas is also evident in the cavernous sinuses and superficial fascial vein. IMPRESSION: 1. Chronic small vessel ischemic change. Unchanged old infarcts in the right frontal lobe. No acute intracranial abnormality. 2. Gas in the left orbit is most likely intravascular as there is additional evidence of intravascular gas elsewhere. This most likely relates to the presence of an intravenous line and injection technique. No gross evidence of injury to the left orbit. Correlate clinically. Electronically signed by: Johnny Power M.D. 08/10/2018 7:07 PM ECG Data Attestation: I personally reviewed and interpreted this ECG as follows: Indication: altered mental status Rate (beats per minute): 56 Rhythm: sinus bradycardia Findings: + T-wave inversion (diffusely); no PAC and no PVC Comparison ECG Date: from (02/14/18) Change: the following changes noted (changes are new) Blood Pressure Blood Pressure Findings: Elevated blood pressure Blood Pressure Disposition: further management by hospitalist NOEL Narrative Additional history was obtained from the patient's family member. The patient is a 78-year-old female who presented to the emergency department for an evaluation of altered mental status. The patient's family member gives some of the history as the patient is unable to give much history. She denies having any pain. The patient was worked up for altered mental status. CAT scan did not show any acute disease. Her EKG did show some T wave abnormalities which I thought could be consistent with venous thromboembolic disease. CT the chest did not reveal any signs of pulmonary embolus but did show a subclavian DVT. I discussed the patient's laboratory and radiographic studies with the son as well as with the patient. Given the patient's findings I did discuss her case with the on-call [facility] hospitalist. They have agreed to evaluate patient in the emergency department for further management and disposition. The patient was reevaluated multiple times. She was treated with IV fluids. Impression & Plan Altered mental status, Abnormal EKG, DVT (deep venous thrombosis), Elevated troponin Discharge Plan Visit Data Chief Complaint: Illness Stated Complaint: LETHARGIC ED Provider: Cameron Stover Discharge Problem: Altered mental status, Abnormal EKG, DVT (deep venous thrombosis), Elevated troponin Patient Disposition: Being Evaluated by Hospitalist Forms Stand Alone Forms: My [facility] Prescriptions Prescriptions: No Action fluticasone-salmeterol [Advair Diskus] 250-50 mcg/dose Blister With Device 1 inh INHALATION BID RF: 0 ipratropium-albuterol 0.5 mg-3 mg(2.5 mg base)/3 mL Solution For Nebulization 3 ml INHALATION QID PRN (Reason: Shortness Of Breath Or Wheezing) RF: 0 acetaminophen [Tylenol Extra Strength] 500 mg Tablet 1,000 mg PO Q8H PRN (Reason: Pain) RF: 0 levothyroxine 50 mcg Tablet 50 mcg PO DAILY RF: 0 rivastigmine tartrate 3 mg Capsule 3 mg PO BID RF: 0 atorvastatin [Lipitor] 40 mg tablet 40 mg PO QPM RF: 0 citalopram [Celexa] 40 mg tablet 40 mg PO DAILY RF: 0 aspirin [Aspir-81] 81 mg Tablet,Delayed Release (Dr/Ec) 81 mg PO DAILY RF: 0 docusate sodium [Colace] 100 mg Capsule 100 mg PO BID RF: 0 ramipril [Altace] 5 mg capsule 5 mg PO DAILY RF: 0 levetiracetam [Keppra] 100 mg/mL solution 10 ml PO BID RF: 0 metoprolol tartrate 25 mg tablet 25 mg PO BID RF: 0 Brilinta 90 mg tablet 90 mg PO BID RF: 0 Referrals Referrals: Gayle Moreno MD [Primary Care Provider] - Discharge Problem: Altered mental status Qualifiers: Altered mental status type: unspecified Qualified Code(s): R41.82 - Altered mental status, unspecified DVT (deep venous thrombosis) Qualifiers: DVT location: upper extremity Affected thrombotic vein of extremity: unspecified vein of extremity Chronicity: unspecified Laterality: left Qualified Code(s): I82.622 - Acute embolism and thrombosis of deep veins of left upper extremity The scribe's documentation has been prepared under my direction and personally reviewed by me in its entirety. I confirm that the note above accurately reflects all work, treatment, procedures, and medical decision making performed by me.
[2018-08-10] MEDS ORDERED: SODIUM CHLORIDE 0.9% 500 ML IV SCH (18:30)
--- NOTE | 2018-08-10 19:08 | CT Scan Report ---
CT head/brain wo con CLINICAL HISTORY: 78 years-old Female presenting with altered MS. TECHNIQUE: Multidetector CT imaging of the head was performed without the use of intravenous contrast . IV contrast: None. One or more dose lowering techniques were used consistent with the principles of ALARA (as low as reasonably achievable), including automatic exposure control, mA or kV adjustment t o individual patient size, and/or use of iterative reconstruction. COMPARISON: 02/13/2018. CT DOSE (mGy.cm): The estimated cumulative dose is 537.48 mGy.cm. FINDINGS: Textile Designer topogram: The patient is edentulous. Proportional ventricular and sulcal prominence, likely age-related parenchymal volume loss. No hemorr cleopatra. Periventricular and subcortical white matter hypoattenuation, nonspecific but likely indicative of chronic small vessel ischemic change. Old infarcts in the right frontal lobe both inferiorly and superiorly. No acute territorial infarct. No mass effect or midline shift. No extra-axial fluid colle ction. Paranasal sinuses and mastoid air cells clear. Calvarium intact. Gas is noted posterior to the left globe (series 2 image 11). This is most likely intravascular related to the presence of a presu med intravenous line. Gas is also evident in the cavernous sinuses and superficial fascial vein. IMPRESSION: 1. Chronic small vessel ischemic change. Unchanged old infarcts in the right frontal lobe. No acute intracranial abnormality. 2. Gas in the left orbit is most likely intravascular as there is additional evidence of intravascul ar gas elsewhere. This most likely relates to the presence of an intravenous line and injection techn ique. No gross evidence of injury to the left orbit. Correlate clinically. Electronically signed by: Johnny Power M.D. 08/10/2018 7:07 PM
[2018-08-10 19:47] LABS: Basophils # (auto) 0.03 K/uL (0-0.2); Basophils % (auto) 0.4 %; Eosinophils # (auto) 0.27 K/uL (0-0.5); Eosinophils % (auto) 3.2 %; Hemoglobin 11.7 g/dL (12.0-16.0); Immature Granulocytes # (auto) 0.01 K/uL (0.00-0.02); Immature Granulocytes % (auto) 0.1 %; Lymphocytes % (auto) 30.5 %; Mean Corpuscular Hgb Conc 32.5 g/dL (32-36); Mean Corpuscular Volume 92.3 fL (80-100); Mean Platelet Volume 10.2 fL (7.4-10.4); Monocytes # (auto) 0.59 K/uL (0.11-0.59); Monocytes % (auto) 6.9 %; Neutrophils # (auto) 5.03 K/uL (1.4-6.5); Neutrophils % (auto) 58.9 %; Platelet Count 349 K/uL (130-400); RDW Coefficient of Variation 14.7 % (11.5-14.5); RDW Standard Deviation 50.2 fL (36.4-46.3); White Blood Count 8.53 K/uL (4.8-10.8)
--- NOTE | 2018-08-10 19:50 | XRay Report ---
SINGLE VIEW CHEST CLINICAL HISTORY: Generalized weakness. FINDINGS: An AP, portable, upright chest radiograph is compared to study dated 02/13/2018. The examinat ion is degraded by portable technique and patient rotation. The cardiomediastinal silhouette is unre markable comment noting atherosclerotic calcification of the thoracic aorta. There is bibasilar scarr ing/atelectasis. No airspace consolidation or large pleural effusion is identified. Chronic interstit ial thickening is similar to previous. No pneumothorax is seen. The skeletal structures are osteopeni c. The bony thorax is grossly intact. IMPRESSION: No active disease in the chest. Electronically signed by: Roberto Clark M.D. 08/10/2018 7:48 PM
[2018-08-10 19:56] LABS: INR 1.1 (0.9-1.1); Prothrombin Time 11.3 Seconds (9.0-12.0)
[2018-08-10 20:13] LABS: Albumin Level 2.7 gm/dl (3.4-5.0); BUN Creatinine Ratio 19.6 (10-20); Calcium 8.2 mg/dl (8.5-10.1); Creatinine Clr Calc Pharmacy 63.1 ml/min; Est GFR (African American) 81.8; Est GFR (Non-African American) 70.5; Potassium 4.2 mmol/L (3.5-5.1)
[2018-08-10 20:24] LABS: Albumin Globulin Ratio 0.7 (0.9-2); Bilirubin,Total 0.3 mg/dl (0.2-1); Globulin 3.7 gm/dl (2.5-4.0); Total Protein 6.4 gm/dl (6.4-8.2); Troponin I 0.038 ng/ml (0-0.045)
[2018-08-10 20:37] LABS: T4 Free Thyroxine 1.56 ng/dl (0.8-1.6)
[2018-08-10] MEDS ORDERED: OPTIRAY 320 125ml IV PRN (21:26)
--- NOTE | 2018-08-10 21:43 | CT Scan Report ---
CT ANGIOGRAM OF THE CHEST CLINICAL HISTORY: Generalized weakness. COMPARISON STUDY: Chest x-ray dated 08/10/2018. TECHNIQUE: Following the IV administration of 119 cc of Optiray 320, CT angiogram of the chest was pe rformed from the upper abdomen to the thoracic inlet utilizing the pulmonary embolus protocol. Images are reviewed in the axial, sagittal, and coronal planes. 3-D MIPS images are created and assessed. I V contrast was administered without complication. A dose lowering technique was utilized adhering to the principles of ALARA. The examination is degraded by motion artifact, as well as by streak artifa ct from the arms which could not be elevated above the chest. CT DOSE: 553.53 mGy.cm FINDINGS: Thyroid: Imaged portions of the thyroid gland are normal in size and attenuation. Thoracic aorta: There is atherosclerotic calcification of the thoracic aorta, which is normal in deb paul and demonstrates standard 3-vessel arch anatomy. No dissection is seen, although the thoracic aor ta is suboptimally opacified. 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 Pulmonary vasculature: The pulmonary trunk is normal in caliber. There are no filling defects identif ied in main, lobar, or proximal segmental pulmonary branches to suggest pulmonary embolus. Evaluation of the peripheral branches is degraded by motion artifact. Heart: The heart is mildly enlarged and without pericardial effusion. The coronary arteries and victor hugo l annulus are densely calcified. Lungs and pleural spaces: Evaluation of the lung parenchyma is significantly degraded by motion artif act. Note that this degrades assessment for small pulmonary lesions. Emphysematous change is noted. T he trachea is clear. Secretions are noted in the right mainstem bronchus. No airspace consolidation o r pleural effusion is identified. Foci of scarring/atelectasis are noted at the lung bases, and there is mild elevation of left hemidiaphragm. Mediastinum: There is no mediastinal lymphadenopathy. Rebecca: Clear. Axillae: There is no axillary lymphadenopathy. Upper abdomen: Partially visualized upper abdominal viscera is within normal limits. Skeletal structures: The skeletal structures are osteopenic. Degenerative change and hyperkyphosis ar e noted in the thoracic spine. No lytic or blastic bony lesions are seen. IMPRESSION: 1. Streak and motion compromised examination. 2. There is no evidence of pulmonary embolus in the main, lobar, or proximal segmental pulmonary maren vonda. Evaluation of the peripheral branches is degraded by motion artifact. 3. Cardiomegaly and emphysema. 4. No airspace consolidation or pleural effusion is identified. 5. 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 6. Additional findings as above. Electronically signed by: Roberto Clark M.D. 08/10/2018 9:40 PM
[2018-08-10] MEDS ORDERED: SODIUM CHLORIDE 0.9% 1000ML 500 ML IV ONE (22:32)
--- NOTE | 2018-08-10 23:15 | History & Physical Report ---
Date of Service August 10, 2018 Assessment & Plan (1) Altered mental status: Family noted confusion this afternoon. Cause of altered mental status uncertain. No acute findings on CT of head. Possible dehydration. Consider UTI-urinalysis pending. 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 Check old records from [facility] to determine if previously noted. Check duplex of left upper extremity. (3) Coronary artery disease: History of recent coronary stenting. Old records from [facility] requested. EKG shows nonspecific findings. Check serial troponins and echocardiogram. Continue aspirin, ticagrelor, metoprolol, statin. (4) COPD (chronic obstructive pulmonary disease): Pulmonary status appears to be stable. (5) CKD (chronic kidney disease) stage 3, GFR 30-59 ml/min: Serum creatinine 0.81. Follow. (6) Hypothyroidism: TSH 0.097. Free T4 1.56. Continue levothyroxine. (7) Dementia: History of dementia, possibly combination of vascular dementia and Alzheimer's disease. Continue rivastigmine. Monitor for delirium. (8) Epilepsy: Continue levetiracetam. (9) Do not resuscitate status: Per discussion with family. (10) DVT prophylaxis: Anticoagulants relatively contraindicated due to history of intracranial aneurysm and subarachnoid hemorrhage. SCDs. Ambulate as able. (11) Discharge planning issues: Anticipated discharge to home where she is cared for by her family. Family Medicine follow-up with Dr. Moreno. History of Present Illness Chief Complaint: confusion Primary Care Provider: Gayle Moreno 78-year-old female followed by Dr. Moreno. History of coronary artery disease, cerebrovascular disease, dementia, and other problems. Family noted this afternoon that she was confused and more lethargic than usual. Patient is unable to share any history because of her advanced dementia and altered mental status. No apparent fever, cough, shortness of breath, chest pain, nausea, vomiting, diarrhea, urinary symptoms, headache, seizure, or new neurologic symptoms. Allergies Allergy/AdvReac Type Severity Reaction Status Date / Time Sulfa (Sulfonamide AdvReac Intermediate headache Verified 08/11/18 01:28 Antibiotics) codeine AdvReac Mild vomiting Verified 08/11/18 01:28 tramadol AdvReac Unknown CAN NOT Verified 08/10/18 19:03 HAVE DUE TO RISK OF SEIZURES Home Medications Home Medications Medication Instructions Recorded Confirmed Type acetaminophen [Tylenol Extra 1,000 mg PO Q8H PRN 02/13/18 08/10/18 History Strength] fluticasone-salmeterol [Advair 1 inh INHALATION BID 02/13/18 08/10/18 History Diskus] ipratropium-albuterol 3 ml INHALATION QID PRN 02/13/18 08/10/18 History levothyroxine 50 mcg PO DAILY 02/13/18 08/10/18 History rivastigmine tartrate 3 mg PO BID 02/13/18 08/10/18 History aspirin [Aspir-81] 81 mg PO DAILY 08/10/18 08/10/18 History atorvastatin [Lipitor] 40 mg PO QPM 08/10/18 08/10/18 History citalopram [Celexa] 40 mg PO DAILY 08/10/18 08/10/18 History docusate sodium [Colace] 100 mg PO BID 08/10/18 08/10/18 History levetiracetam [Keppra] 10 ml PO BID 08/10/18 08/10/18 History metoprolol tartrate 25 mg PO BID 08/10/18 08/10/18 History ramipril [Altace] 5 mg PO DAILY 08/10/18 08/10/18 History ticagrelor [Brilinta] 90 mg PO BID 08/10/18 08/10/18 History Past Med/Surg History Medical History Do not resuscitate status (Chronic) Coronary artery disease (Chronic) Chronic headache (Chronic) CKD (chronic kidney disease) stage 3, GFR 30-59 ml/min (Chronic) Vascular dementia (Chronic) Osteoporosis (Chronic) Epilepsy (Chronic) Hypothyroidism (Chronic) s/p thyroidectomy Dementia (Chronic) COPD (chronic obstructive pulmonary disease) (Chronic) Cerebral aneurysm, nonruptured Subarachnoid hemorrhage TIA (transient ischemic attack) Surgical History History of hysterectomy (Chronic) H/O thyroidectomy (Chronic) Family History Mother Cancer Father Liver disease Social History Preferred Language: Albanian Communication Ability: Impaired Beliefs That Will Affect Care: None Current Living Situation: Family Current Living Situation Comment: Grandson Other Information That Helps Us Care for You: No Feels Safe at Home: Yes Safety Concerns: Feels Safe At This Time Smoking Status: Unknown if ever smoked Hx Alcohol Use: No Hx Substance Use: No Review of Systems Unobtainable due to cognitive status Physical Exam Vital Signs (Past 24 Hours): Last Vital Signs Temp 36.7 C 08/10/18 18:18 Pulse 83 08/10/18 21:33 Resp 24 08/10/18 21:33 BP 164/111 H 08/10/18 21:33 Pulse Ox 96 08/10/18 21:33 Constitutional: WD/WN, vitals as above no acute distress Eyes: PERRL, conjunctivae normal, anicteric sclerae ENMT: external ear and nose normal, oropharynx normal Mouth: + dentures Neck: trachea midline, no thyromegaly Respiratory: normal respiratory effort, lungs clear to auscultation Cardiovascular: Rate/Rhythm: regular rate Heart Sounds: no gallop, no murmur and no cardiac rub Vessels: no JVD and + abnormal peripheral pulses (pedal pulses diminished) Extremities: normal capillary refill; no calf tenderness and no edema Gastrointestinal (Abdomen): normal bowel sounds, soft, nontender, no hepatosplenomegaly Musculoskeletal: Head/Neck/Chest: neck supple Extremities: no cyanosis and no clubbing Skin: no rashes, warm and dry Neurologic: PERRL, EOMI no facial palsy dysarthria diffuse mild-pmoderate motor weakness patellar DTR's 1/2 bilat plantar reflexes upgoing bilat Psychiatric: Orientation: alert; + not oriented x 3 minimally verbal Lymphatic: no cervical lymphadenopathy Results & Data Laboratory Results Hemoglobin 11.7, white count 8530, platelet count 349,000. Sodium 139, potassium 4.2, chloride 111, CO2 22, BUN 16, creatinine 0.81, glucose 102. UA pending. Diagnostic Findings Chest x-ray unremarkable. CT head showed chronic small vessel ischemic changes, old infarcts in the right frontal lobe, no acute process. Incidental finding was gas in the left orbit, cavernous sinus, and superficial facial vein. CTA of chest negative for pulmonary embolism. Thrombosis of left subclavian artery was noted. Cardiomegaly and emphysematous changes were noted. ECG Additional Comments: EKG performed at 1843 reviewed and demonstrated sinus rhythm at 56/minute, baseline artifact, possible age-indeterminate inferior infarct, inverted T waves in V3 and V4, flattened T waves in V5 and V6. Code Status & VTE Plan Code Status DNR VTE Prophylaxis Plan VTE Prophylaxis will be ordered: Yes (1) Altered mental status Altered mental status type: unspecified Qualified Code(s): R41.82 - Altered mental status, unspecified
[2018-08-11] MEDS ORDERED: ACETAMINOPHEN 500 MG TAB PO PRN (01:06)
[2018-08-11] MEDS ORDERED: NITROGLYCERIN SL 0.4 MG/TAB TAB SL PRN (01:06)
[2018-08-11] MEDS ORDERED: ALBUT/IPRATROP 3MG/0.5MG NEB 3 ML VIAL INH PRN (01:06)
[2018-08-11] MEDS: levETIRAcetam ORAL SOLN 100MG/ML PO SCH ×3 (01:56→21:06)
[2018-08-11] MEDS: METOPROLOL TARTRATE 25 MG TAB PO SCH ×3 (01:56→21:05)
[2018-08-11] MEDS: RIVASTIGMINE TARTRATE 1.5 MG CAP PO SCH ×3 (01:57→21:05)
[2018-08-11] MEDS: TICAGRELOR 90 MG TAB PO SCH ×3 (01:59→21:06)
[2018-08-11 05:52] LABS: Hematocrit (blood only) 35.2 % (37-47); Hemoglobin 11.4 g/dL (12.0-16.0); Mean Corpuscular Hgb Conc 32.4 g/dL (32-36); Mean Corpuscular Volume 91.2 fL (80-100); Platelet Count 341 K/uL (130-400); RDW Coefficient of Variation 14.7 % (11.5-14.5); RDW Standard Deviation 48.8 fL (36.4-46.3); Red Blood Count 3.86 M/uL (4.2-5.4); White Blood Count 9.36 K/uL (4.8-10.8)
[2018-08-11 06:27] LABS: BUN Creatinine Ratio 16.1 (10-20); Calcium 8.7 mg/dl (8.5-10.1); Est GFR (African American) 85.6; Est GFR (Non-African American) 73.8; Potassium 4.1 mmol/L (3.5-5.1)
[2018-08-11] MEDS: LEVOTHYROXINE SODIUM 50 MCG TABLET PO SCH (06:27)
[2018-08-11 06:53] LABS: D Dimer 1070 ug/L FEU (0-500)
[2018-08-11] MEDS: DOCUSATE SODIUM 100 MG CAP PO SCH ×2 (07:30→21:04)
[2018-08-11] MEDS: ENALAPRIL MALEATE 10 MG TAB PO SCH (07:30)
[2018-08-11] MEDS: CITALOPRAM 40 MG TAB PO SCH (07:31)
[2018-08-11] MEDS: ASPIRIN 81 MG ECTAB PO SCH (07:31)
[2018-08-11] MEDS: FLUTICASONE/SALMETEROL 250/50 (ADVAIR) 14 PUFF/1 INHALER INH SCH ×2 (07:32→21:03)
[2018-08-11] MEDS ORDERED: PERFLUTREN LIPID MICROSPHERE (DEFINITY) IV ONE (08:57)
--- NOTE | 2018-08-11 09:55 | Ultrasound Report ---
LEFT UPPER EXTREMITY VENOUS DOPPLER HISTORY: L subclavian vein thrombosis noted on CTA chest COMPARISON STUDY: None. FINDINGS: The left internal jugular vein is patent. There is normal flow within the left subclavian v ein. There is normal flow and compressibility within the left axillary, basilic, brachial, radial, ul eduardo, and visualized cephalic veins. IMPRESSION: No DVT within the left upper extremity. Of note, the previous chest CTA described a thrombosed left subclavian artery and not the left subclavian vein. Electronically signed by: Manjinder Helton M.D. 08/11/2018 9:54 AM
[2018-08-11 12:23] LABS: Basophils # (auto) 0.04 K/uL (0-0.2); Basophils % (auto) 0.4 %; Eosinophils # (auto) 0.29 K/uL (0-0.5); Eosinophils % (auto) 2.7 %; Hematocrit (blood only) 35.9 % (37-47); Hemoglobin 11.6 g/dL (12.0-16.0); Immature Granulocytes # (auto) 0.02 K/uL (0.00-0.02); Immature Granulocytes % (auto) 0.2 %; Lymphocytes # (auto) 2.44 K/uL (1.2-3.4); Lymphocytes % (auto) 22.7 %; Mean Corpuscular Volume 91.1 fL (80-100); Mean Platelet Volume 10.2 fL (7.4-10.4); Monocytes # (auto) 0.83 K/uL (0.11-0.59); Monocytes % (auto) 7.7 %; Neutrophils # (auto) 7.15 K/uL (1.4-6.5); Neutrophils % (auto) 66.3 %; Platelet Count 373 K/uL (130-400); RDW Coefficient of Variation 14.7 % (11.5-14.5); RDW Standard Deviation 49.2 fL (36.4-46.3); Red Blood Count 3.94 M/uL (4.2-5.4); White Blood Count 10.77 K/uL (4.8-10.8)
[2018-08-11 12:33] LABS: INR 1.1 (0.9-1.1); Partial Thromboplastin Time 26.2 Seconds (21.0-31.0); Prothrombin Time 11.3 Seconds (9.0-12.0)
[2018-08-11 12:55] LABS: Mean Corpuscular Hgb Conc 32.3 g/dL (32-36)
[2018-08-11 13:30] LABS: Appearance Urine Clear (Clear); Bilirubin Urine Negative (Negative); Blood Urine Negative (Negative); Color Urine Yellow; Glucose Urine UA Negative (Negative); Ketones Urine Negative (Negative); Leukocyte Esterase Urine Negative (Negative); Nitrite Urine Negative (Negative); Protein Urine Negative (Negative); Specific Gravity Urine > 1.045 (1.000-1.030); Urobilinogen Urine Negative (Negative)
--- NOTE | 2018-08-11 15:23 | Ultrasound Report ---
ULTRASOUND BILATERAL LOWER EXTREMITY VENOUS CLINICAL HISTORY: Generalized weakness. COMPARISON STUDY: No priors. TECHNIQUE: Real-time, grayscale, and color Doppler sonography of the deep veins of the right and left lower extremity was performed from the inguinal crease to the calf. Compression and augmentation wer e utilized. FINDINGS: There is no sonographic evidence of deep venous thrombosis identified in the right or left lower extremity. The common femoral and superficial femoral veins are patent and normally compressibl e bilaterally. The left popliteal vein was patent and normally compressible. The right popliteal vein was not well visualized due to lack of patient cooperation. The greater saphenous vein and the profu nda femoris vein at the junction with the common femoral vein are clear in both legs. The visualized calf veins are patent bilaterally. IMPRESSION: There is no sonographic evidence of deep venous thrombosis identified in the right or lef t lower extremity. Electronically signed by: Roberto Calrk M.D. 08/11/2018 3:21 PM
--- NOTE | 2018-08-11 15:31 | Ultrasound Report ---
US arterial duplex UE LT CLINICAL HISTORY: L subclavian artery thrombosis noted on CTA chest COMPARISON STUDY: Chest CTA 08/10/2018. FINDINGS: The thrombosed proximal left subclavian artery seen on the recent chest CT is unable to be visualized by ultrasound. The proximal left common carotid artery is patent. There is reversal of rohini w within the left vertebral artery. The mid to distal left subclavian artery is patent. This demonstr ates monophasic borderline low velocity waveforms. There are monophasic low velocity waveforms throug hout the remaining left upper extremity arterial system. No stenosis or occlusion. IMPRESSION: The thrombosed proximal left subclavian artery seen on the recent chest CT is unable to be visualized by ultrasound. However, there is reversal flow within the left vertebral artery and sli ghtly diminished flow throughout the remaining left upper extremity arterial system. 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 Electronically signed by: Manjinder Helton M.D. 08/11/2018 3:29 PM
--- NOTE | 2018-08-11 20:40 | Hospitalist Progress Note ---
Date of Service August 11, 2018 Assessment & Plan (1) Altered mental status: Cause of altered mental status uncertain. No acute findings on CT of head. no evidence of acute infection at this time (2) Subclavian artery thrombosis: extensive workup was performed because Left subclavian artery thrombosis incidentally noted on CTA of chest. on the left upper extremity arterial ultrasound The thrombosed proximal left subclavian artery seen on the recent chest CT is unable to be visualized by ultrasound. However, there is reversal flow within the left vertebral artery and slightly diminished flow throughout the remaining left upper extremity arterial system. Therefore, these findings are consistent with subclavian steal syndrome venous ultrasound of left upper extremity and bilateral lower extremity without evidence of DVT TTE did not show evidence of clots of vegetations have discussed with patient's daughter Ana Maria that given patient's history of coronary artery disease and history of intracranial bleed that patient should not purse any active surgical interventions for the subclavian steal syndrome as potential mortality risks of procedures or anticoagulation for any possible thrombosis outweighs the benefits (3) Coronary artery disease: History of recent coronary stenting. Old records from [facility] requested. EKG shows nonspecific findings. Echocardiogram 60 to 65% with grade 1 diastolic dysfunction Continue aspirin, ticagrelor, metoprolol, statin. (4) COPD (chronic obstructive pulmonary disease): Pulmonary status appears to be stable. (5) CKD (chronic kidney disease) stage 3, GFR 30-59 ml/min: Serum creatinine 0.81. Follow. (6) Hypothyroidism: TSH 0.097. Free T4 1.56. Continue levothyroxine. (7) Dementia: History of dementia, possibly combination of vascular dementia and Alzheimer's disease. Continue rivastigmine. (8) Epilepsy: Continue levetiracetam. (9) Do not resuscitate status: Per discussion with family. (10) DVT prophylaxis: Anticoagulants relatively contraindicated due to history of intracranial aneurysm and subarachnoid hemorrhage. SCDs. Ambulate as able (11) Discharge planning issues: Anticipated discharge to home where she is cared for by her family when continued to be stable Family Medicine follow-up with Dr. Moreno. Subjective Patient awake today. and as per her daughter Ana Maria [phone] that patient with history of dementia and at mental baseline. Patient verbal but does not answer appropriately to questions. patient does not appear to report problems with pain or with breathing Physical Exam Vital Signs (Past 24 Hours): Last Vital Signs Temp 37.3 C 08/11/18 20:25 Pulse 82 08/11/18 20:25 Resp 16 08/11/18 20:25 BP 142/84 H 08/11/18 20:25 Pulse Ox 96 08/11/18 20:25 Constitutional: well developed Eyes: PERRL, conjunctivae normal, anicteric sclerae EOM intact bilaterally ENMT: external ear and nose normal, oropharynx normal Respiratory: normal respiratory effort, lungs clear to auscultation Cardiovascular: Rate/Rhythm: regular rate and regular rhythm Gastrointestinal (Abdomen): normal bowel sounds, soft, nontender, no hepatosplenomegaly Musculoskeletal: Head/Neck/Chest: normocephalic and head atraumatic Neurologic: PERRL, EOMI, accommodation nl, no face palsy, no dysarthria CN's II-XI intact bilaterally Psychiatric: Orientation: alert (history of dementia) (1) Altered mental status Altered mental status type: unspecified Qualified Code(s): R41.82 - Altered mental status, unspecified
[2018-08-11] MEDS ORDERED: ATORVASTATIN 40 MG TAB PO SCH (21:00)
[2018-08-12] MEDS: LEVOTHYROXINE SODIUM 50 MCG TABLET PO SCH (06:34)
[2018-08-12] MEDS: levETIRAcetam ORAL SOLN 100MG/ML PO SCH (08:23)
[2018-08-12] MEDS: FLUTICASONE/SALMETEROL 250/50 (ADVAIR) 14 PUFF/1 INHALER INH SCH (08:23)
[2018-08-12] MEDS: RIVASTIGMINE TARTRATE 1.5 MG CAP PO SCH (08:24)
[2018-08-12] MEDS: ASPIRIN 81 MG ECTAB PO SCH (08:24)
[2018-08-12] MEDS: ENALAPRIL MALEATE 10 MG TAB PO SCH (08:24)
[2018-08-12] MEDS: CITALOPRAM 40 MG TAB PO SCH (08:24)
[2018-08-12] MEDS: TICAGRELOR 90 MG TAB PO SCH (08:25)
[2018-08-12] MEDS: METOPROLOL TARTRATE 25 MG TAB PO SCH (08:25)
[2018-08-12] MEDS: DOCUSATE SODIUM 100 MG CAP PO SCH (08:25)
--- NOTE | 2018-08-12 16:37 | Hospitalist Progress Note ---
Date of Service August 12, 2018 Assessment & Plan (1) Altered mental status: Cause of altered mental status uncertain. No acute findings on CT of head. 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 on the left upper extremity arterial ultrasound The thrombosed proximal left subclavian artery seen on the recent chest CT is unable to be visualized by ultrasound. However, there is reversal flow within the left vertebral artery and slightly diminished flow throughout the remaining left upper extremity arterial system. Therefore, these findings are consistent with subclavian steal syndrome venous ultrasound of left upper extremity and bilateral lower extremity without evidence of DVT TTE did not show evidence of clots of vegetations 08/11/18 have discussed with patient's daughter Ana Maria that given patient's history of coronary artery disease and history of intracranial bleed that patient should not purse any active surgical interventions for the subclavian steal syndrome as potential mortality risks of procedures or anticoagulation for any possible thrombosis outweighs the benefits (3) Coronary artery disease: History of recent coronary stenting. Echocardiogram 60 to 65% with grade 1 diastolic dysfunction no notable telemetry events on this admission Continue aspirin, ticagrelor, metoprolol, statin. (4) COPD (chronic obstructive pulmonary disease): Pulmonary status appears to be stable. (5) CKD (chronic kidney disease) stage 3, GFR 30-59 ml/min: stable creatinine (6) Hypothyroidism: TSH 0.097. Free T4 1.56. will discharge on reduce dose of Levothyroxine from 50 mcg daily to 25 mcg daily to raise TSH in future will need outpatient follow up with primary care doctor (7) Dementia: History of dementia, possibly combination of vascular dementia and Alzheimer's disease. Continue rivastigmine. (8) Epilepsy: Continue levetiracetam. (9) Do not resuscitate status: Per discussion with family. (10) DVT prophylaxis: Anticoagulants relatively contraindicated due to history of intracranial aneurysm and subarachnoid hemorrhage. SCDs. Ambulate as able (11) Discharge planning issues: Discharge Instructions Discharge to Home Patient should take less Levothyroxine from 50 mcg daily to 25 mcg daily Follow up appointments 08/16/2018 1:00 PM Provider Giselle Morrison MD Department Internal Medicine [facility] 09/13/2018 2:20 PM Provider Serina Lindquist MD Department Neurology [facility] 09/16/2018 1:00 PM Provider Chad Guthrie DO Department Cardiology [facility] 11/25/2018 2:20 PM Provider Gayle Moreno MD Department Internal Medicine [facility] Discharge Diagnosis Altered mental status, Dementia, 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, subclavian steal syndrome, Hypothyroidism, CKD (chronic kidney disease) stage 3, GFR 30-59 ml/min, Coronary artery disease, history of intracranial bleed Subjective Patient continues to be awake and verbal patient with history of dementia and at mental baseline. cooperative on exam patient does not report problems with pain or problems with breathing no notable telemetry events Physical Exam Vital Signs (Past 24 Hours): Last Vital Signs Temp 37.1 C 08/12/18 11:28 Pulse 72 08/12/18 11:28 Resp 20 08/12/18 11:28 BP 99/66 L 08/12/18 11:28 Pulse Ox 95 08/12/18 11:28 Constitutional: well developed Eyes: PERRL, conjunctivae normal, anicteric sclerae EOM intact bilaterally ENMT: external ear and nose normal, oropharynx normal Respiratory: normal respiratory effort, lungs clear to auscultation Cardiovascular: Rate/Rhythm: regular rate and regular rhythm Gastrointestinal (Abdomen): normal bowel sounds, soft, nontender, no hepatosplenomegaly Musculoskeletal: Head/Neck/Chest: normocephalic and head atraumatic Neurologic: PERRL, EOMI, accommodation nl, no face palsy, no dysarthria CN's II-XI intact bilaterally Psychiatric: Orientation: alert (history of dementia) (1) Altered mental status Altered mental status type: unspecified Qualified Code(s): R41.82 - Altered mental status, unspecified
--- NOTE | 2018-08-12 16:40 | Discharge Summary ---
Date of Service August 12, 2018 Admission HPI Per Admitting Provider 78-year-old female followed by Dr. Moreno. History of coronary artery disease, cerebrovascular disease, dementia, and other problems. Family noted this afternoon that she was confused and more lethargic than usual. Patient is unable to share any history because of her advanced dementia and altered mental status. No apparent fever, cough, shortness of breath, chest pain, nausea, vomiting, diarrhea, urinary symptoms, headache, seizure, or new neurologic symptoms. Admission Exam Per Admitting Provider Constitutional: WD/WN, vitals as above no acute distress Eyes: PERRL, conjunctivae normal, anicteric sclerae ENMT: external ear and nose normal, oropharynx normal Mouth: + dentures Neck: trachea midline, no thyromegaly Respiratory: normal respiratory effort, lungs clear to auscultation Cardiovascular: Rate/Rhythm: regular rate Heart Sounds: no gallop, no murmur and no cardiac rub Vessels: no JVD and + abnormal peripheral pulses (pedal pulses diminished) Extremities: normal capillary refill; no calf tenderness and no edema Gastrointestinal (Abdomen): normal bowel sounds, soft, nontender, no hepatosplenomegaly Musculoskeletal: Head/Neck/Chest: neck supple Extremities: no cyanosis and no clubbing Skin: no rashes, warm and dry Neurologic: PERRL, EOMI no facial palsy dysarthria diffuse mild-pmoderate motor weakness patellar DTR's 1/2 bilat plantar reflexes upgoing bilat Psychiatric: Orientation: alert; + not oriented x 3 minimally verbal Lymphatic: no cervical lymphadenopathy Principal Diagnosis Altered mental status, Dementia, 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, subclavian steal syndrome, Hypothyroidism, CKD (chronic kidney disease) stage 3, GFR 30-59 ml/min, Coronary artery disease, history of intracranial bleed Discharge Exam Constitutional well developed Eyes PERRL, conjunctivae normal, anicteric sclerae EOM intact bilaterally ENMT external ear and nose normal, oropharynx normal Respiratory normal respiratory effort, lungs clear to auscultation Cardiovascular Rate/Rhythm: regular rate and regular rhythm Gastrointestinal (Abdomen) normal bowel sounds, soft, nontender, no hepatosplenomegaly Musculoskeletal Head/Neck/Chest: normocephalic and head atraumatic Neurologic PERRL, EOMI, accommodation nl, no face palsy, no dysarthria CN's II-XI intact bilaterally Psychiatric Orientation: alert (history of dementia) Discharge Data Allergies Allergy/AdvReac Type Severity Reaction Status Date / Time Sulfa (Sulfonamide AdvReac Intermediate headache Verified 08/11/18 01:28 Antibiotics) codeine AdvReac Mild vomiting Verified 08/11/18 01:28 tramadol AdvReac Unknown CAN NOT Verified 08/10/18 19:03 HAVE DUE TO RISK OF SEIZURES Consultations 08/10/18 22:31 ED Decision to Admit Stat Ordered Studies 08/10/18 18:24 CT head/brain wo con Stat 08/10/18 20:56 CT angio chest PE protocol Stat 08/11/18 06:30 US venous doppler UE LT Routine 08/11/18 11:17 US arterial duplex UE LT Urgent 08/11/18 11:43 US venous doppler LE BI Routine Hospital Course (1) Altered mental status: Cause of altered mental status uncertain. No acute findings on CT of head. 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 on the left upper extremity arterial ultrasound The thrombosed proximal left subclavian artery seen on the recent chest CT is unable to be visualized by ultrasound. However, there is reversal flow within the left vertebral artery and slightly diminished flow throughout the remaining left upper extremity arterial system. Therefore, these findings are consistent with subclavian steal syndrome venous ultrasound of left upper extremity and bilateral lower extremity without evidence of DVT TTE did not show evidence of clots of vegetations 08/11/18 have discussed with patient's daughter Ana Maria that given patient's history of coronary artery disease and history of intracranial bleed that patient should not purse any active surgical interventions for the subclavian steal syndrome as potential mortality risks of procedures or anticoagulation for any possible thrombosis outweighs the benefits (3) Coronary artery disease: History of recent coronary stenting. Echocardiogram 60 to 65% with grade 1 diastolic dysfunction no notable telemetry events on this admission Continue aspirin, ticagrelor, metoprolol, statin. (4) COPD (chronic obstructive pulmonary disease): Pulmonary status appears to be stable. (5) CKD (chronic kidney disease) stage 3, GFR 30-59 ml/min: stable creatinine (6) Hypothyroidism: TSH 0.097. Free T4 1.56. will discharge on reduce dose of Levothyroxine from 50 mcg daily to 25 mcg daily to raise TSH in future will need outpatient follow up with primary care doctor (7) Dementia: History of dementia, possibly combination of vascular dementia and Alzheimer's disease. Continue rivastigmine. (8) Epilepsy: Continue levetiracetam. (9) Do not resuscitate status: Per discussion with family. (10) DVT prophylaxis: Anticoagulants relatively contraindicated due to history of intracranial aneurysm and subarachnoid hemorrhage. SCDs. Ambulate as able (11) Discharge planning issues: Discharge Instructions Discharge to Home Patient should take less Levothyroxine from 50 mcg daily to 25 mcg daily Follow up appointments 08/16/2018 1:00 PM Provider Giselle Morrison MD Department Internal Medicine [facility] 09/13/2018 2:20 PM Provider Serina Lindquist MD Department Neurology [facility] 09/16/2018 1:00 PM Provider Chad Guthrie DO Department Cardiology [facility] 11/25/2018 2:20 PM Provider Gayle Moreno MD Department Internal Medicine 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, subclavian steal syndrome, Hypothyroidism, CKD (chronic kidney disease) stage 3, GFR 30-59 ml/min, Coronary artery disease, history of intracranial bleed Total Time Total Time Spent Total Time Spent (In Minutes): 40 minutes Total Time Includes: Examination of the Patient, Discharge Planning and Medication Reconciliation Discharge Plan Discharge Items Patient Disposition: Home - Self-Care Reason For Visit: ALTERED MENTAL STATUS Discharge Diagnosis: Altered mental status, Dementia, 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, subclavian steal syndrome, Hypothyroidism, CKD (chronic kidney disease) stage 3, GFR 30-59 ml/min, Coronary artery disease, history of intracranial bleed Condition: Fair Discharge Goals: Prevent disease Activity: Resume your previous activity Non-emergency contact: Primary Care Provider and Location Manager Call non-emergency contact if: you have any medication questions Follow-up/Referrals: Gayle Moreno MD [Primary Care Provider] - Diet: Heart Healthy Diet Texture: Dental soft (bite-sized) Addtl Provider Instructions: Discharge to Home Patient should take less Levothyroxine from 50 mcg daily to 25 mcg daily Follow up appointments 08/16/2018 1:00 PM Provider Giselle Morrison MD Department Internal Medicine [facility] 09/13/2018 2:20 PM Provider Serina Lindquist MD Department Neurology [facility] 09/16/2018 1:00 PM Provider Chad Guthrie DO Department Cardiology [facility] 11/25/2018 2:20 PM Provider Gayle Moreno MD Department Internal Medicine [facility] Prescriptions: New levothyroxine [Synthroid] 25 mcg Tablet 25 mcg PO DAILYBB 30 Days Qty: 30 RF: 0 Continued fluticasone-salmeterol [Advair Diskus] 250-50 mcg/dose Blister With Device 1 inh INHALATION BID RF: 0 ipratropium-albuterol 0.5 mg-3 mg(2.5 mg base)/3 mL Solution For Nebulization 3 ml INHALATION QID PRN (Reason: Shortness Of Breath Or Wheezing) RF: 0 acetaminophen [Tylenol Extra Strength] 500 mg Tablet 1,000 mg PO Q8H PRN (Reason: Pain) RF: 0 levothyroxine 50 mcg Tablet 50 mcg PO DAILY RF: 0 rivastigmine tartrate 3 mg Capsule 3 mg PO BID RF: 0 atorvastatin [Lipitor] 40 mg tablet 40 mg PO QPM RF: 0 citalopram [Celexa] 40 mg tablet 40 mg PO DAILY RF: 0 aspirin [Aspir-81] 81 mg Tablet,Delayed Release (Dr/Ec) 81 mg PO DAILY RF: 0 docusate sodium [Colace] 100 mg Capsule 100 mg PO BID RF: 0 ramipril [Altace] 5 mg capsule 5 mg PO DAILY RF: 0 levetiracetam [Keppra] 100 mg/mL solution 10 ml PO BID RF: 0 metoprolol tartrate 25 mg tablet 25 mg PO BID RF: 0 Brilinta 90 mg tablet 90 mg PO BID RF: 0 Stand-Alone Forms: [facility] Discharge Orders: Discharge Order (Routine); Ordered 08/12/18 Ordered By: Bud Dietrich Admission Data Admit Date/Time: 08/10/18 23:13 Attending Provider: Bud Dietrich Admit Provider: Jack Callejas Primary Care Provider: Gayle Moreno Other Providers: Jack Callejas Service: Telemetry Medical
[2018-08-13] MEDS ORDERED: LEVOTHYROXINE SODIUM 25 MCG TABLET PO SCH (06:30)
== END 2018-08-12 17:00 | disposition home or self-care (01) | DRG 300 ==
LOC: ED 18:13 → SUATTDRO 23:13 → 2N 23:13